=== PATIENT | female | born 1940 | race Caucasian/White ===

== ENCOUNTER 2017-12-05 08:07 | Inpatient (IN) | payer MEDICARE, OTHER, SELFPAY ==
[2017-12-05] VITALS (32 sets, daily range): BP systolic 123–178; BP diastolic 50–84; PULSE 63–80; RESP 12–25; TEMP 36.1–37.1; O2SAT 94–100; BMI 33.3; BMI 33.5
--- NOTE | 2017-12-05 09:21 | XR_ITS ---
XR chest portable HISTORY: Cough and shortness of breath, possible aspiration ITS.REASON: possibel aspiration pneumonia ORDERING PHYSICIAN: Rishabh Resendez MD PATIENT AGE: 76 years COMPARISON: None available FINDINGS: Unremarkable cardiovascular structures. There is patchy density noted in the retrocardiac region on the left the right infrahilar region consistent with bibasilar areas of infiltrate to be related to aspiration pneumonia. No effusions. No acute bony anomalies. IMPRESSION: Patchy bibasilar infiltrates which may be seen with aspiration pneumonia
[2017-12-05 11:03] LABS: POC Glucose,Bedside 261 mg/dL
[2017-12-05 11:23] LABS: Alanine Aminotransferase 133 U/L (12-78); Albumin Level 1.9 gm/dL (3.4-5.0); Albumin/Globulin Ratio 0.5 (1.1-1.8); Alkaline Phosphatase 58 U/L (46-116); Aspartate Amino Transferase 116 U/L (15-37); Bilirubin,Total 0.7 mg/dL (0.2-1.0); Blood Urea Nitrogen 51 mg/dL (7-18); Calcium 7.3 mg/dL (8.5-10.1); Carbon Dioxide 28 mmol/L (21.0-32.0); Chloride 114 mmol/L (98-107); Creatinine Clearance Estimated 62 mL/min (0-300); Estimated Glomerular Filt Rate 54 ml/min (>60); GFR (African American) 65 ML/MIN (>60); Globulin 3.8 gm/dl (1.3-3.2); Glucose 249 mg/dL (74-106); Total Protein,Serum 5.7 gm/dL (6.4-8.2)
--- NOTE | 2017-12-05 11:26 | P.CONPHA_ITS ---
[facility] Pharmacy VTE Monitoring - Patient Demographics Admission date: 12/05/17 Report Date: 12/05/17 Time: 11:25 Allergies/Adverse Reactions: Patient Allergies diltiazem [From Cardizem] Allergy (Unknown, Verified 12/05/17 09:56) Height: 1.57 m Weight: 82.696 kg - VTE Risk Clinical Trial Participant: No - Prophylaxis VTE Prophylaxis Ordered?: Yes Types of VTE Prophylaxis: TEDS Knee High
--- NOTE | 2017-12-05 11:34 | HMH.HP ---
*Admission Date: 12/05/17 Meds Home Medications Medication Instructions Recorded Confirmed Type Apixaban [Eliquis] 5 mg NG-TUBE BID 12/05/17 12/05/17 History Ascorbic Acid [Vitamin C] 250 mg NG-TUBE DAILY 12/05/17 12/05/17 History Aspirin [Aspirin 81mg EC Tab] 81 mg NG-TUBE DAILY 12/05/17 12/05/17 History Atorvastatin Calcium [Atorvastatin 80 mg NG-TUBE HS 12/05/17 12/05/17 History 80mg Tab] Citalopram Hydrobromide [Celexa 20 mg NG-TUBE DAILY 12/05/17 12/05/17 History 20mg Tablet] Diclofenac Sodium [Diclofenac Sod 2 gm TP QID 12/05/17 12/05/17 History 100gm Topical Gel] Ferrous Sulfate [Ferrous Sulfate 300 mg NG-TUBE DAILY 12/05/17 12/05/17 History 300mg/5mL Udc] Hydralazine HCl 50 mg NG-TUBE Q8H 12/05/17 12/05/17 History Labetalol HCl [Normodyne 200mg 200 mg NG-TUBE Q8H 12/05/17 12/05/17 History tablet] Methylphenidate HCl [Ritalin] 10 mg NG-TUBE DAILY 12/05/17 12/05/17 History Mirtazapine [Remeron] 15 mg NG-TUBE DAILY 12/05/17 12/05/17 History Multivitamin,Ther and Minerals 1 each NG-TUBE DAILY 12/05/17 12/05/17 History [Vitamin and Minerals] Nystatin [Nystatin Oint 100,000 10 ml G-TUBE Q8H 12/05/17 12/05/17 History Units/GM 15GM] Pantoprazole Sodium [Protonix 40mg 40 mg NG-TUBE DAILY 12/05/17 12/05/17 History tablet] Allergies Allergy/AdvReac Type Severity Reaction Status Date / Time diltiazem [From Cardizem] Allergy Unknown Verified 12/05/17 09:56 Exam Vital signs and Labs for Last 24 Hours: Temp Pulse Resp BP Pulse Ox 97.0 F L 67 25 H 141/62 100 12/05/17 08:36 12/05/17 11:01 12/05/17 08:36 12/05/17 08:36 12/05/17 11:01 Laboratory Results - last 24 hr 12/05/17 10:35: POC Glucose 261 I & O for Last 24 hours: Intake & Output 12/02/17 12/03/17 12/04/17 12/05/17 11:59 11:59 11:59 11:59 Weight 182 lb 5 oz
[2017-12-05 11:36] LABS: Sodium 152 mmol/L (136-145)
--- NOTE | 2017-12-05 11:43 | PC.NURSE ---
Patient arrived on unit via EMS. pt was on 50% venti. mask. pt lung sounds contained rhonchi scattered and diminished in bases. bowel sounds are active. g tube in place. goopy drainage noted around gtube insertion site, along with dried drainage. wound was cleansed with chlorhexadine swabe and g tube dressing applied. pt has unstageable wounds to maría elena shins. pt has 2 stage 2's on coccyx. dressings applied. pt has small stage 1 noted to maría elena hips. pt has stage 3 noted to r heel. pt has unstageable ulcer to left outer ankle. pictures are to be placed on chart. dressings were applied to all wounds. pics shown to physical therapy r/t pt wound eval. phys therapy states that dressings are appropriate at this time. will readdress at later time.
--- NOTE | 2017-12-05 12:04 | HMH.HP ---
*Admission Date: 12/05/17 <Lizbeth Boothe - 12/05/17 12:25> *Chief complaint: Respiratory distress and AMS <Lizbeth Boothe - 12/05/17 12:25> *History of present illness: Ms Gold is a 76 year old female with a difficult medical history to include multiple CVA's with left sided residual, Type 2 DM, and HTN who is a resident of of [facility]. She was sent to [facility] ER via EMS early this AM with fever, respiratory hypoxia, vomiting and AMS. She was evaluated at this ER and felt to need admission to an ICU bed . After contacting multiple facilities in [place] no ICU beds were available. Dr. Resendez was contacted and patient accepted for admission to [facility]. Patient is unable to give information and history is obtained from previous histories and [facility]: Per [facility] ER notation- Patient was noted to be bedridden with residual left sided weakness. She had been placed on oxygen at 4 LPM in the alf in order to maintain O2 sat > 92%. O2 sats then began decreasing and she was lethargic. Chest was congested. She vomited and was felt to have possibly aspirated. She did have a fever of 102.6 and was given Tylenol . Family had noted a cough. Nursing staff stated that she had not felt well for a couple of days. With evaluation in [facility] ER she was noted to have green sputum, wheezing and felt to be in respiratory distress. She also vomited and received Zofran. She was started on IV Vanc, Levaquin, and Zosyn. She received a neb TX and 1 unit of PRBC. She was initially hypotensive and was given an estimated 4000ml of NS IV. With elevated BNP fluid bolus was discontinued. Lab results at [facility] ER: HGB 6.2 with normal WBC's, elevated LFT, BUN 67 and creatinine 1.1; BS 222; negative flu; + UA; ABG's 7.52, PCO2 41, PO2 45, HCO3 34, TI 0.115. BNP 4740 CXR no definite acute CP disease 12/04/17 CTA of chest - no definite PE CT of abdomen --copious dense stool throughout the bowel and expanding rectum indicating fecal impaction; small HH As per [facility] in [place]: Patient had a right SHAKIRA stroke in Sep 2017 with residual left sided weakness. She was discharged to [facility] for rehab following admission in Sep. She returned a few days later due to neurological changes with imaging showing extension of the previous stroke. She was on Plavix at the time and transitioned to Eliquis. She was discharged back to [facility] Oct 16, 2017 and returned to [facility] Oct 25 due to hematocrit crisis. EGD revealed non-erosive gastritis without overt bleeding. She resumed Eliquis, PPI and ASA and discharged back to [facility] 10/27/17. Patient presented back to [facility] 11/03/17 with nausea, vomiting, and diarrhea with a temp of 100. CXR at this time revealed possible LLL infiltrate, neg flu PCR, and + UTI. CT of the head at this time was stable. Patient was noted to be minimally interactive. She was treated for accelerated HTN with a cardene gtt and then PO labetalol and hydralazine. Speech therapy did follow the patient for dysphasia. She did not eat well and GT was placed for tube feedings for FTT. On 11/22/17 she was transferred to the SNF in [facility] for further care. <Lizbeth Boothe 12/05/17 15:15> [facility] History Medical History: Reports:: Cerebrovascular Accident, Diabetes Mellitus Type 2, Gastroesophageal Reflux Disease(GERD), Gastrointestinal Bleed, Hypertension, Urinary Tract Infection <Lizbeth Boothe 12/05/17 14:06> Other Medical History: Reports: Anemia <Lizbeth Boothe 12/05/17 14:06> *Family Hx:: Unable to obtain <Lizbeth Boothe 12/05/17 14:06> Review of Systems - Review of Systems patient does answer questions yes and no <Lizbeth Boothe 12/05/17 14:06> - *Cardiovascular Reports shortness of breath, Denies chest pain <Lizbeth Boothe 12/05/17 14:06> - *Respiratory Reports cough, Reports shortness of breath <Lizbeth Boothe 12/05/17 14:06> - *Gastrointestina
--- NOTE | 2017-12-05 12:25 | P.HP_ITS ---
*Admission Date: 12/05/17 <Lizbeth Boothe - 12/05/17 12:25> *Chief complaint: Respiratory distress and AMS <Lizbeth Boothe - 12/05/17 12:25 > *History of present illness: Ms Gold is a 76 year old female with a difficult medical history to include multiple CVA's with left sided residual, Type 2 DM, and HTN who is a resident of of [facility]. She was sent to [facility] ER via EMS early this AM with fever, respiratory hypoxia, vomiting and AMS. She was evaluated at this ER and felt to need admission to an ICU bed . After contacting multiple facilities in [place] no ICU beds were available. Dr. Resendez was contacted and patient accepted for admission to [facility]. Patient is unable to give information and history is obtained from previous histories and [facility]: Per [facility] ER notation- Patient was noted to be bedridden with residual left sided weakness. She had been placed on oxygen at 4 LPM in the fci in order to maintain O2 sat > 92%. O2 sats then began decreasing and she was lethargic. Chest was congested. She vomited and was felt to have possibly aspirated. She did have a fever of 102.6 and was given Tylenol . Family had noted a cough. Nursing staff stated that she had not felt well for a couple of days. With evaluation in [facility] ER she was noted to have green sputum, wheezing and felt to be in respiratory distress. She also vomited and received Zofran. She was started on IV Vanc, Levaquin, and Zosyn. She received a neb TX and 1 unit of PRBC. She was initially hypotensive and was given an estimated 4000ml of NS IV. With elevated BNP fluid bolus was discontinued. Lab results at [facility] ER: HGB 6.2 with normal WBC's, elevated LFT, BUN 67 and creatinine 1.1; BS 222; negative flu; + UA; ABG's 7.52, PCO2 41, PO2 45, HCO3 34 , TI 0.115. BNP 4740 CXR no definite acute CP disease 12/04/17 CTA of chest - no definite PE CT of abdomen --copious dense stool throughout the bowel and expanding rectum indicating fecal impaction; small HH As per [facility] in [place]: Patient had a right SHAKIRA stroke in Sep 2017 with residual left sided weakness. She was discharged to [facility] for rehab following admission in Sep. She returned a few days later due to neurological changes with imaging showing extension of the previous stroke. She was on Plavix at the time and transitioned to Eliquis. She was discharged back to [facility] Oct 16, 2017 and returned to [facility] Oct 25 due to hematocrit crisis. EGD revealed non-erosive gastritis without overt bleeding. She resumed Eliquis, PPI and ASA and discharged back to [facility] 10/27/17. Patient presented back to [facility] 11/03/17 with nausea, vomiting, and diarrhea with a temp of 100. CXR at this time revealed possible LLL infiltrate , neg flu PCR, and + UTI. CT of the head at this time was stable. Patient was noted to be minimally interactive. She was treated for accelerated HTN with a cardene gtt and then PO labetalol and hydralazine. Speech therapy did follow the patient for dysphasia. She did not eat well and GT was placed for tube feedings for FTT. On 11/22/17 she was transferred to the SNF in [facility] for further care. <Lizbeth Boothe 12/05/17 15:15> [facility] History Medical History: Reports:: Cerebrovascular Accident, Diabetes Mellitus Type 2, Gastroesophageal Reflux Disease(GERD), Gastrointestinal Bleed, Hypertension, Urinary Tract Infection <Lizbeth Boothe 12/05/17 14:06> Other Medical History: Reports: Anemia <Lizbeth Boothe 12/05/17 14:06> *Family Hx:: Unable to obtain <Lizbeth Boothe 12/05/17 14:06> Review of Systems - Review of Systems patient does answer questions yes and no
--- NOTE | 2017-12-05 12:42 | PC.NURSE ---
LAB AT THE BEDSIDE NOW FOR LAB DRAW PER ORDERS.
[2017-12-05 12:54] LABS: Basophils % 0.3 % (0.1-2.0); Hematocrit 25.4 % (37.0-47.0); Lymphocytes # 1.4 K/mm3 (0.7-4.5); Lymphocytes % 19.1 K/mm3 (10-50); Mean Corpuscular HGB Conc 30.8 g/dL (31.8-35.4); Mean Platelet Volume 9.3 fl (7.4-10.4); Monocytes # 0.3 K/mm3 (0.1-1.0); Monocytes % 4.4 % (1.7-9.3); Neutrophils # 5.6 K/mm3 (1.8-7.8); Neutrophils % 76.2 % (37.0-80.0); Platelet Count 228 K/mm3 (142-424); Red Blood Count 2.79 M/mm3 (4.20-5.40); Red Cell Distribution Width 17.6 % (11.5-17.5); White Blood Count 7.4 K/mm3 (4.8-10.8)
[2017-12-05 13:05] LABS: INR 1.22 (0.9-1.1); Prothrombin Time 13.2 seconds (9.4-11.8)
[2017-12-05 13:20] LABS: Mycoplasma Pneumo IGM (Rapid) Non-Reactive (Non-Reactiv)
[2017-12-05 13:29] LABS: Hemoglobin 7.8 g/dL (12.2-16.2)
--- NOTE | 2017-12-05 13:55 | PC.NURSE ---
notified dietary that clinical ob has nutrition consult for pt./
--- NOTE | 2017-12-05 16:24 | HMH.PHACONS ---
- Pharmacy Consult Date: 12/05/17 Time: 16:24 Referring provider: DR. AVENDAÑO Reason for Consult:: VANCOMYCIN DOSING Allergies and ADEs:: Allergies Allergy/AdvReac Type Severity Reaction Status Date / Time diltiazem [From Cardizem] Allergy Unknown Verified 12/05/17 09:56 Home Medications:: Home Medications Medication Instructions Recorded Confirmed Type Apixaban [Eliquis] 5 mg NG-TUBE BID 12/05/17 12/05/17 History Ascorbic Acid [Vitamin C] 250 mg NG-TUBE DAILY 12/05/17 12/05/17 History Aspirin [Aspirin 81mg EC Tab] 81 mg NG-TUBE DAILY 12/05/17 12/05/17 History Atorvastatin Calcium [Atorvastatin 80 mg NG-TUBE HS 12/05/17 12/05/17 History 80mg Tab] Citalopram Hydrobromide [Celexa 20 mg NG-TUBE DAILY 12/05/17 12/05/17 History 20mg Tablet] Diclofenac Sodium [Diclofenac Sod 2 gm TP QID 12/05/17 12/05/17 History 100gm Topical Gel] Ferrous Sulfate [Ferrous Sulfate 300 mg NG-TUBE DAILY 12/05/17 12/05/17 History 300mg/5mL Udc] Hydralazine HCl 50 mg NG-TUBE Q8H 12/05/17 12/05/17 History Labetalol HCl [Normodyne 200mg 200 mg NG-TUBE Q8H 12/05/17 12/05/17 History tablet] Methylphenidate HCl [Ritalin] 10 mg NG-TUBE DAILY 12/05/17 12/05/17 History Mirtazapine [Remeron] 15 mg NG-TUBE DAILY 12/05/17 12/05/17 History Multivitamin,Ther and Minerals 1 each NG-TUBE DAILY 12/05/17 12/05/17 History [Vitamin and Minerals] Nystatin [Nystatin Oint 100,000 10 ml G-TUBE Q8H 12/05/17 12/05/17 History Units/GM 15GM] Pantoprazole Sodium [Protonix 40mg 40 mg NG-TUBE DAILY 12/05/17 12/05/17 History tablet] Height: 1.57 m Weight: 82.696 kg Laboratory Results:: Laboratory Results - last 24 hr 12/05/17 10:09: Sodium 152 H*, Potassium 4.0, Chloride 114 H, Carbon Dioxide 28, Anion Gap 14.0, BUN 51 H, Creatinine 1.00, Estimated Creat Clear 62, Estimated GFR 54 L, Est GFR ( Amer) 65, Glucose 249 H, Calcium 7.3 L, Total Bilirubin 0.7, AST 116 H, ALT 133 H, Alkaline Phosphatase 58, Total Protein 5.7 L, Albumin 1.9 L, Globulin 3.8 H, Albumin/Globulin Ratio 0.5 L 12/05/17 10:09: Mycoplasma pneumon IgM Non-reactive 12/05/17 10:35: POC Glucose 261 12/05/17 12:37: WBC 7.4, RBC 2.79 L, Hgb 7.8 L*, Hct 25.4 L, MCV 91.0, MCH 28.0, MCHC 30.8 L, RDW 17.6 H, Plt Count 228, MPV 9.3, Neut % (Auto) 76.2, Lymph % (Auto) 19.1, [place] % (Auto) 4.4, Eos % (Auto) 0.0 L, Baso % (Auto) 0.3, Neut # (Auto) 5.6, Lymph # (Auto) 1.4, [place] # (Auto) 0.3, Eos # (Auto) 0.0, Baso # (Auto) 0.0 12/05/17 12:37: PT 13.2 H, INR 1.22 H, APTT 29.0 12/05/17 14:00: Blood Type A Positive 12/05/17 14:40: Blood Type Confirm A Positive Medical History: Reports:: Cerebrovascular Accident, Diabetes Mellitus Type 2, Gastroesophageal Reflux Disease(GERD), Gastrointestinal Bleed, Hypertension, Urinary Tract Infection Denies:: Cancer, Diabetes Mellitus Type 1, MRSA Assessment and Plan (1) Anemia Current visit: Yes Status: Acute Category: Medical Code(s): D64.9 - Anemia, unspecified (2) CVA (cerebrovascular accident) Current visit: Yes Status: Chronic Category: Medical Code(s): I63.9 - Cerebral infarction, unspecified (3) HTN (hypertension) Current visit: Yes Status: Chronic Category: Medical Code(s): I10 - Essential (primary) hypertension (4) Diabetes mellitus Current visit: Yes Status: Chronic Category: Medical Code(s): E11.9 - Type 2 diabetes mellitus without complications (5) Pneumonia Current visit: Yes Status: Acute Qualifiers: Pneumonia type: aspiration pneumonia Category: Medical Code(s): J18.9 - Pneumonia, unspecified organism (6) UTI (urinary tract infection) Current visit: Yes Status: Acute Category: Medical Code(s): N39.0 - Urinary tract infection, site not specified - Assessment and plan all Dx Assessment and Plan for all problems:: BASED ON PATIENT'S FACTORS, RECOMMEND STARTING WITH VANCOMYCIN 1500 MG Q24H AT THIS TIME. PHARMACY WILL FOLLOW UP DAILY AND ADJUST APPROPRI
--- NOTE | 2017-12-05 16:39 | DIET.NUTRFU ---
Nutrition consult for tube feeds completed. Recommend Glucerna 1.0 goal rate 63 ml/hr with additional beneprotein powder one scoop tid added to 30 ml free water. This should provide approx 1550 calories, 88 gm protein and 22 gm fiber. Recommend restart mvi supplement and ascorbic acid. Recommend d/c mirtazpine if being used as an appetite stimulant. will monitor for tolerance to tube feeds.
[2017-12-05 17:16] LABS: POC Glucose,Bedside 202 mg/dL
--- NOTE | 2017-12-05 17:43 | HMH.GSCON ---
*Admission Date: 12/05/17 *Chief complaint: Anemia *History of present illness: Patient is a 76-year-old white female [facility] patient resident of [facility]. Recently she had sustained several cerebrovascular accidents. She had been hospitalized at [facility] for prolonged and repeated admissions recently. In fact, she has had several prolonged stays for the past several months between [facility] and [facility] rehab [facility]. She had a percutaneous endoscopic gastrostomy tube placed approximately 2 weeks ago. Patient was ultimately apparently transferred to correction facility in [facility] on 11/22/17. She was transferred to [facility] emergency department yesterday and evaluation revealed fevers and hypoxia and findings suggestive of respiratory distress . She was found to have anemia and hypernatremia. It was felt that she required an ICU bed. Reportedly there were no ICU beds in [facility] or within [facility]. Due to ICU bed availability at this institution she was transferred and admitted. Due to the anemia surgery was consulted. Review of Systems - Review of Systems Review of systems:: unable to obtain - *Neurologic Reports abnormal speech [facility] History I have reviewed the patient's past medical history: Yes Medical History: Reports:: Cerebrovascular Accident, Diabetes Mellitus Type 2, Gastroesophageal Reflux Disease(GERD), Gastrointestinal Bleed, Hypertension, Urinary Tract Infection Denies:: Cancer, Diabetes Mellitus Type 1, MRSA Other Medical History: Reports: Anemia Amputation: No - *Social History Smoking Status: Unknown if ever smoked Alcohol Intake: never Occupational Status: retired, disabled Housing: usp - Psychiatric History Expresses thoughts of harming self/others: None Suicide Plan Description: No Plan *Family Hx:: Unable to obtain [facility] Home Medications Medication Instructions Recorded Confirmed Type Apixaban [Eliquis] 5 mg NG-TUBE BID 12/05/17 12/05/17 History Ascorbic Acid [Vitamin C] 250 mg NG-TUBE DAILY 12/05/17 12/05/17 History Aspirin [Aspirin 81mg EC Tab] 81 mg NG-TUBE DAILY 12/05/17 12/05/17 History Atorvastatin Calcium [Atorvastatin 80 mg NG-TUBE HS 12/05/17 12/05/17 History 80mg Tab] Citalopram Hydrobromide [Celexa 20 mg NG-TUBE DAILY 12/05/17 12/05/17 History 20mg Tablet] Diclofenac Sodium [Diclofenac Sod 2 gm TP QID 12/05/17 12/05/17 History 100gm Topical Gel] Ferrous Sulfate [Ferrous Sulfate 300 mg NG-TUBE DAILY 12/05/17 12/05/17 History 300mg/5mL Udc] Hydralazine HCl 50 mg NG-TUBE Q8H 12/05/17 12/05/17 History Labetalol HCl [Normodyne 200mg 200 mg NG-TUBE Q8H 12/05/17 12/05/17 History tablet] Methylphenidate HCl [Ritalin] 10 mg NG-TUBE DAILY 12/05/17 12/05/17 History Mirtazapine [Remeron] 15 mg NG-TUBE DAILY 12/05/17 12/05/17 History Multivitamin,Ther and Minerals 1 each NG-TUBE DAILY 12/05/17 12/05/17 History [Vitamin and Minerals] Nystatin [Nystatin Oint 100,000 10 ml G-TUBE Q8H 12/05/17 12/05/17 History Units/GM 15GM] Pantoprazole Sodium [Protonix 40mg 40 mg NG-TUBE DAILY 12/05/17 12/05/17 History tablet] Allergies Allergy/AdvReac Type Severity Reaction Status Date / Time diltiazem [From Cardizem] Allergy Unknown Verified 12/05/17 09:56 Exam Vital signs and Labs for Last 24 Hours: Temp Pulse Resp BP Pulse Ox 98.7 F 66 16 162/69 100 12/05/17 17:40 12/05/17 17:40 12/05/17 16:00 12/05/17 17:40 12/05/17 17:40 Laboratory Results - last 24 hr 12/05/17 10:09: Sodium 152 H*, Potassium 4.0, Chloride 114 H, Carbon Dioxide 28, Anion Gap 14.0, BUN 51 H, Creatinine 1.00, Estimated Creat Clear 62, Estimated GFR 54 L, Est GFR ( Amer) 65, Glucose 249 H, Calcium 7.3 L, Total Bilirubin 0.7, AST 116 H, ALT 133 H, Alkaline Phosphatase 58, Total Protein 5.7 L, Albumin 1.9 L, Globulin 3.8 H, Albumin/G
--- NOTE | 2017-12-05 17:51 | P.CONS_ITS ---
*Admission Date: 12/05/17 *Chief complaint: Anemia *History of present illness: Patient is a 76-year-old white female correction patient resident of [facility]. Recently she had sustained several cerebrovascular accidents. She had been hospitalized at [facility] for prolonged and repeated admissions recently. In fact, she has had several prolonged stays for the past several months between [facility] and [facility] rehab [facility]. She had a percutaneous endoscopic gastrostomy tube placed approximately 2 weeks ago. Patient was ultimately apparently transferred to [facility] facility in [facility] on . She was transferred to [facility] emergency department yesterday and evaluation revealed fevers and hypoxia and findings suggestive of respiratory distress . She was found to have anemia and hypernatremia. It was felt that she required an ICU bed. Reportedly there were no ICU beds in [facility] or within [facility]. Due to ICU bed availability at this institution she was transferred and admitted. Due to the anemia surgery was consulted. Review of Systems - Review of Systems Review of systems:: unable to obtain - *Neurologic Reports abnormal speech [facility] History I have reviewed the patient's past medical history: Yes Medical History: Reports:: Cerebrovascular Accident, Diabetes Mellitus Type 2, Gastroesophageal Reflux Disease(GERD), Gastrointestinal Bleed, Hypertension, Urinary Tract Infection Denies:: Cancer, Diabetes Mellitus Type 1, MRSA Other Medical History: Reports: Anemia Amputation: No - *Social History Smoking Status: Unknown if ever smoked Alcohol Intake: never Occupational Status: retired, disabled Housing: correction - Psychiatric History Expresses thoughts of harming self/others: None Suicide Plan Description: No Plan *Family Hx:: Unable to obtain [facility] Home Medications Medication Instructions Recorded Confirmed Type Apixaban [Eliquis] 5 mg NG-TUBE BID 12/05/17 12/05/17 History Ascorbic Acid [Vitamin C] 250 mg NG-TUBE DAILY 12/05/17 12/05/17 History Aspirin [Aspirin 81mg EC Tab] 81 mg NG-TUBE DAILY 12/05/17 12/05/17 History Atorvastatin Calcium [Atorvastatin 80 mg NG-TUBE HS 12/05/17 12/05/17 History 80mg Tab] Citalopram Hydrobromide [Celexa 20 mg NG-TUBE DAILY 12/05/17 12/05/17 History 20mg Tablet] Diclofenac Sodium [Diclofenac Sod 2 gm TP QID 12/05/17 12/05/17 History 100gm Topical Gel] Ferrous Sulfate [Ferrous Sulfate 300 mg NG-TUBE DAILY 12/05/17 12/05/17 History 300mg/5mL Udc] Hydralazine HCl 50 mg NG-TUBE Q8H 12/05/17 12/05/17 History Labetalol HCl [Normodyne 200mg 200 mg NG-TUBE Q8H 12/05/17 12/05/17 History tablet] Methylphenidate HCl [Ritalin] 10 mg NG-TUBE DAILY 12/05/17 12/05/17 History Mirtazapine [Remeron] 15 mg NG-TUBE DAILY 12/05/17 12/05/17 History Multivitamin,Ther and Minerals 1 each NG-TUBE DAILY 12/05/17 12/05/17 History [Vitamin and Minerals] Nystatin [Nystatin Oint 100,000 10 ml G-TUBE Q8H 12/05/17 12/05/17 History Units/GM 15GM] Pantoprazole Sodium [Protonix 40mg 40 mg NG-TUBE DAILY 12/05/17 12/05/17 History tablet] Allergies Allergy/AdvReac Type Severity Reaction Status Date / Time diltiazem [From [facility]] Allergy Unknown Verified 12/05/17 09:56 Exam Vital signs and Labs for Last 24 Hours:
--- NOTE | 2017-12-05 18:03 | PC.NURSE ---
Addendum entered by Carey Jones RN 12/06/17 07:40: late entry: during bedside exam with dr nichols, removed suture that was reportedly in place since insertion of g tube 2 weeks prior (information per family) Original Note: At bedside with dr Nichols during Consult. Pt g tube was again checked for patency. no javon blood or coffee ground emesis noted with aspiration of stomach contents. previously in the shift, patency was verified by elver jones rn at 1120. no aspirants noted, placement in abd verified by insertion of air through g tube. dr nichols states ok to use g tube, new dressing was applied after inspection by md. will continue to monitor.
--- NOTE | 2017-12-05 18:10 | PC.NURSE ---
PATIENT NOW GETTING HER FIRST UNIT OF BLOOD, VSS, SHE IS TOLERATING THE TRANSFUSION WELL, WE ARE 15 MINUTES IN, PATIENT IS SLEEPING AT THIS TIME.
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
[2017-12-05 19:55] LABS: Microscopic,Cath URINE MICROSCOPIC (MICROSCOPIC)
--- NOTE | 2017-12-05 20:12 | PC.NURSE ---
report given to glen posadas rn at 192
[2017-12-05 21:04] LABS: Bacteria,Urine/Cath 1+ /lpf; RBC,Urine/Cath 20-50 # /hpf (0-3); Squamous Epithelial Ur./Cath Occasional #/hpf (0-5); Uric Acid Crystals,Ur/Cath 2+ /lpf; WBC,Urine/Cath Occasional #/hpf (0-3)
[2017-12-06] VITALS (16 sets, daily range): BP systolic 143–190; BP diastolic 63–108; PULSE 60–70; RESP 14–28; TEMP 36.9–37.7; O2SAT 94–99
[2017-12-06 00:27] LABS: POC Glucose,Bedside 170 mg/dL
--- NOTE | 2017-12-06 00:29 | PC.NURSE ---
PT HAS HEEL PROTECTORS IN PLACE & HEELS FLOATING
[2017-12-06 01:09] LABS: Hematocrit 33.5 % (37.0-47.0)
[2017-12-06 01:17] LABS: Hemoglobin 10.7 g/dL (12.2-16.2)
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
[2017-12-06 05:26] LABS: POC Glucose,Bedside 209 mg/dL
[2017-12-06 06:17] LABS: Basophils % 0.5 % (0.1-2.0); Eosinophils % 0.1 % (0.1-12.0); Hematocrit 33.9 % (37.0-47.0); Hemoglobin 10.6 g/dL (12.2-16.2); Lymphocytes # 1.2 K/mm3 (0.7-4.5); Lymphocytes % 16.2 K/mm3 (10-50); Mean Corpuscular HGB Conc 31.3 g/dL (31.8-35.4); Mean Corpuscular Hemoglobin 27.4 pg (27.0-31.2); Mean Corpuscular Volume 87.5 fl (81-99); Mean Platelet Volume 9.2 fl (7.4-10.4); Monocytes # 0.3 K/mm3 (0.1-1.0); Monocytes % 4.4 % (1.7-9.3); Neutrophils % 78.8 % (37.0-80.0); Platelet Count 198 K/mm3 (142-424); Red Blood Count 3.87 M/mm3 (4.20-5.40); Red Cell Distribution Width 17.4 % (11.5-17.5); White Blood Count 7.7 K/mm3 (4.8-10.8)
[2017-12-06 06:37] LABS: Alanine Aminotransferase 103 U/L (12-78); Albumin Level 1.9 gm/dL (3.4-5.0); Albumin/Globulin Ratio 0.5 (1.1-1.8); Alkaline Phosphatase 69 U/L (46-116); Anion Gap 12.4 mEq/L (5-15); Aspartate Amino Transferase 79 U/L (15-37); Bilirubin,Total 0.8 mg/dL (0.2-1.0); Blood Urea Nitrogen 36 mg/dL (7-18); Calcium 7.3 mg/dL (8.5-10.1); Carbon Dioxide 30 mmol/L (21.0-32.0); Chloride 112 mmol/L (98-107); Creatinine Clearance Estimated 62 mL/min (0-300); Creatinine,Serum 0.93 mg/dL (0.55-1.02); Estimated Glomerular Filt Rate 59 ml/min (>60); GFR (African American) 71 ML/MIN (>60); Globulin 3.6 gm/dl (1.3-3.2); Glucose 218 mg/dL (74-106); Potassium 3.4 mmoL/L (3.5-5.1); Total Protein,Serum 5.5 gm/dL (6.4-8.2)
[2017-12-06 06:42] LABS: Sodium 151 mmol/L (136-145)
[2017-12-06 07:12] LABS: Appearance,Urine/Cath CLEAR (Clear); Bilirubin,Cath Negative (Negative); Blood, Urine/Cath 1+ (Negative); Color,Urine/Cath YELLOW (Yellow); Glucose,Urine/Cath (UA) Negative (Negative); Ketones,Urine/Cath Negative (Negative); Leukocyte Esterase,Cath Negative (Negative); Nitrate,Cath Negative (Negative); Protein,Urine/Cath 1+ (Negative)
--- NOTE | 2017-12-06 07:54 | PC.NURSE ---
spoke with dr bai. feels pt is more stable at this time and is able to be transferred out of stepdown. will continue to monitor with a jonatan de la rosa
--- NOTE | 2017-12-06 08:50 | P.PN_ITS ---
Subjective Narrative: No major issues overnight. Exam Vital signs and Labs for Last 24 Hours: Temp Pulse Resp BP Pulse Ox 99.9 F H 67 16 157/99 97 12/06/17 07:39 12/06/17 07:39 12/06/17 07:39 12/06/17 07:39 12/06/17 07:39 Laboratory Results - last 24 hr 12/05/17 10:09: Sodium 152 H*, Potassium 4.0, Chloride 114 H, Carbon Dioxide 28 , Anion Gap 14.0, BUN 51 H, Creatinine 1.00, Estimated Creat Clear 62, Estimated GFR 54 L, Est GFR ( Amer) 65, Glucose 249 H, Calcium 7.3 L, Total Bilirubin 0.7, AST 116 H, ALT 133 H, Alkaline Phosphatase 58, Total Protein 5.7 L, Albumin 1.9 L, Globulin 3.8 H, Albumin/Globulin Ratio 0.5 L 12/05/17 10:09: Mycoplasma pneumon IgM Non-reactive 12/05/17 10:35: POC Glucose 261 12/05/17 12:37: WBC 7.4, RBC 2.79 L, Hgb 7.8 L*, Hct 25.4 L, MCV 91.0, MCH 28.0 , MCHC 30.8 L, RDW 17.6 H, Plt Count 228, MPV 9.3, Neut % (Auto) 76.2, Lymph % ( Auto) 19.1, [place] % (Auto) 4.4, Eos % (Auto) 0.0 L, Baso % (Auto) 0.3, Neut # ( Auto) 5.6, Lymph # (Auto) 1.4, [place] # (Auto) 0.3, Eos # (Auto) 0.0, Baso # (Auto ) 0.0 12/05/17 12:37: PT 13.2 H, INR 1.22 H, APTT 29.0 12/05/17 14:00: Blood Type A Positive, Antibody Screen Negative, Crossmatch (AHG ) See Detail 12/05/17 14:40: Blood Type Confirm A Positive 12/05/17 16:38: POC Glucose 202 12/05/17 19:45: Urine Color Yellow, Urine Appearance Clear, Urine pH 6.0, Ur Specific [place] 1.020, Urine Protein 1+, Urine Glucose (UA) Negative, Urine Ketones Negative, Urine Blood 1+, Urine Nitrate Negative, Urine Bilirubin Negative, Urine Urobilinogen 1.0, Ur Leukocyte Esterase Negative, Urine RBC 20- 50, Urine WBC Occasional, Ur Squamous Epith Cells Occasional, Uric Acid Crystals 2+, Urine Bacteria 1+ 12/05/17 19:53: POC Glucose 170 12/06/17 00:50: Hgb 10.7 L D, Hct 33.5 L 12/06/17 04:50: POC Glucose 209 12/06/17 05:50: WBC 7.7, RBC 3.87 L D, Hgb 10.6 L, Hct 33.9 L, MCV 87.5, MCH 27.4, MCHC 31.3 L, RDW 17.4, Plt Count 198, MPV 9.2, Neut % (Auto) 78.8, Lymph % (Auto) 16.2, [place] % (Auto) 4.4, Eos % (Auto) 0.1, Baso % (Auto) 0.5, Neut # ( Auto) 6.0, Lymph # (Auto) 1.2, [place] # (Auto) 0.3, Eos # (Auto) 0.0, Baso # (Auto ) 0.0 12/06/17 05:50: Sodium 151 H*, Potassium 3.4 L, Chloride 112 H, Carbon Dioxide 30, Anion Gap 12.4, BUN 36 H D, Creatinine 0.93, Estimated Creat Clear 62, Estimated GFR 59, Est GFR ( Amer) 71, Glucose 218 H, Calcium 7.3 L, Total Bilirubin 0.8, AST 79 H D, ALT 103 H, Alkaline Phosphatase 69, Total Protein 5.5 L, Albumin 1.9 L, Globulin 3.6 H, Albumin/Globulin Ratio 0.5 L I & O for Last 24 hours: Intake & Output 12/03/17 12/04/17 12/05/17 12/06/17 11:59 11:59 11:59 11:59 Intake Total 303 / 303 Output Total 2199 / 2200 Balance -1897 / -1897 Weight 182 lb 5 oz 180 lb 7 oz - *Routine Abdominal Exam Comments: Soft Progress Note: A&P (1) Anemia Status: Acute Assessment and plan: Treat empirically with PPIs. Would not perform EGD due to recent PEG, no evidence of active bleeding, appreciable hypernatremia. Current Visit: Yes (2) CVA (cerebrovascular accident) Status: Chronic Current Visit: Yes (3) HTN (hypertension) Status: Chronic Current Visit: Yes (4) Diabetes mellitus Status: Chronic Current Visit: Yes (5) Pneumonia Status: Acute Current Visit: Yes (6) UTI (urinary tract infection) Status: Acute Current Visit: Yes
--- NOTE | 2017-12-06 09:07 | HMH.ACPN2 ---
<Sara Worley - Last Filed: 12/06/17 09:07> Internal Medicine - PN: Subj *Date: 12/06/17 *Time: 09:07 Interval history: Pt has improved today. She is more alert and can respond to questions. She denies any pain. She states she slept off and on last night. Exam Vital signs and Labs for Last 24 Hours: Temp Pulse Resp BP Pulse Ox 99.9 F H 67 16 157/99 97 12/06/17 07:39 12/06/17 07:39 12/06/17 07:39 12/06/17 07:39 12/06/17 07:39 Laboratory Results - last 24 hr 12/05/17 10:09: Sodium 152 H*, Potassium 4.0, Chloride 114 H, Carbon Dioxide 28, Anion Gap 14.0, BUN 51 H, Creatinine 1.00, Estimated Creat Clear 62, Estimated GFR 54 L, Est GFR ( Amer) 65, Glucose 249 H, Calcium 7.3 L, Total Bilirubin 0.7, AST 116 H, ALT 133 H, Alkaline Phosphatase 58, Total Protein 5.7 L, Albumin 1.9 L, Globulin 3.8 H, Albumin/Globulin Ratio 0.5 L 12/05/17 10:09: Mycoplasma pneumon IgM Non-reactive 12/05/17 10:35: POC Glucose 261 12/05/17 12:37: WBC 7.4, RBC 2.79 L, Hgb 7.8 L*, Hct 25.4 L, MCV 91.0, MCH 28.0, MCHC 30.8 L, RDW 17.6 H, Plt Count 228, MPV 9.3, Neut % (Auto) 76.2, Lymph % (Auto) 19.1, [place] % (Auto) 4.4, Eos % (Auto) 0.0 L, Baso % (Auto) 0.3, Neut # (Auto) 5.6, Lymph # (Auto) 1.4, [place] # (Auto) 0.3, Eos # (Auto) 0.0, Baso # (Auto) 0.0 12/05/17 12:37: PT 13.2 H, INR 1.22 H, APTT 29.0 12/05/17 14:00: Blood Type A Positive, Antibody Screen Negative, Crossmatch (AHG) See Detail 12/05/17 14:40: Blood Type Confirm A Positive 12/05/17 16:38: POC Glucose 202 12/05/17 19:45: Urine Color Yellow, Urine Appearance Clear, Urine pH 6.0, Ur Specific [place] 1.020, Urine Protein 1+, Urine Glucose (UA) Negative, Urine Ketones Negative, Urine Blood 1+, Urine Nitrate Negative, Urine Bilirubin Negative, Urine Urobilinogen 1.0, Ur Leukocyte Esterase Negative, Urine RBC 20-50, Urine WBC Occasional, Ur Squamous Epith Cells Occasional, Uric Acid Crystals 2+, Urine Bacteria 1+ 12/05/17 19:53: POC Glucose 170 12/06/17 00:50: Hgb 10.7 L D, Hct 33.5 L 12/06/17 04:50: POC Glucose 209 12/06/17 05:50: WBC 7.7, RBC 3.87 L D, Hgb 10.6 L, Hct 33.9 L, MCV 87.5, MCH 27.4, MCHC 31.3 L, RDW 17.4, Plt Count 198, MPV 9.2, Neut % (Auto) 78.8, Lymph % (Auto) 16.2, [place] % (Auto) 4.4, Eos % (Auto) 0.1, Baso % (Auto) 0.5, Neut # (Auto) 6.0, Lymph # (Auto) 1.2, [place] # (Auto) 0.3, Eos # (Auto) 0.0, Baso # (Auto) 0.0 12/06/17 05:50: Sodium 151 H*, Potassium 3.4 L, Chloride 112 H, Carbon Dioxide 30, Anion Gap 12.4, BUN 36 H D, Creatinine 0.93, Estimated Creat Clear 62, Estimated GFR 59, Est GFR ( Amer) 71, Glucose 218 H, Calcium 7.3 L, Total Bilirubin 0.8, AST 79 H D, ALT 103 H, Alkaline Phosphatase 69, Total Protein 5.5 L, Albumin 1.9 L, Globulin 3.6 H, Albumin/Globulin Ratio 0.5 L I & O for Last 24 hours: Intake & Output 12/03/17 12/04/17 12/05/17 12/06/17 11:59 11:59 11:59 11:59 Intake Total 303 / 303 Output Total 2200 / 2200 Balance -1897 / -1897 Weight 182 lb 5 oz 180 lb 7 oz - Constitutional no acute distress (Able to respond today) - *Routine Respiratory Exam Present: crackles - *Routine Cardiovascular Exam Present: RRR - *Routine Abdominal Exam Present: soft, normoactive bowel sounds. Absent: tenderness - *Routine Extremities Exam Absent: edema Assessment and Plan (1) Pneumonia Current visit: Yes Status: Acute Qualifiers: Pneumonia type: aspiration pneumonia Category: Medical Code(s): J18.9 - Pneumonia, unspecified organism (2) UTI (urinary tract infection) Current visit: Yes Status: Acute Category: Medical Code(s): N39.0 - Urinary tract infection, site not specified (3) Hypotension Current visit: Yes Status: Acute Category: Medical Code(s): I95.9 - Hypotension, unspecified (4) Anemia Current visit: Yes Status: Acute Category: Medical Code(s): D64.9 - Anemia, unspecified (5) CVA (cerebrovascular accident) Current visit: Yes Status: Chronic Category: Medical Code(s): I6
--- NOTE | 2017-12-06 09:10 | P.PN_ITS ---
<Sara Worley - Last Filed: 12/06/17 09:07> Internal Medicine - PN: Subj *Date: 12/06/17 *Time: 09:07 Interval history: Pt has improved today. She is more alert and can respond to questions. She denies any pain. She states she slept off and on last night. Exam Vital signs and Labs for Last 24 Hours: Temp Pulse Resp BP Pulse Ox 99.9 F H 67 16 157/99 97 12/06/17 07:39 12/06/17 07:39 12/06/17 07:39 12/06/17 07:39 12/06/17 07:39 Laboratory Results - last 24 hr 12/05/17 10:09: Sodium 152 H*, Potassium 4.0, Chloride 114 H, Carbon Dioxide 28 , Anion Gap 14.0, BUN 51 H, Creatinine 1.00, Estimated Creat Clear 62, Estimated GFR 54 L, Est GFR ( Amer) 65, Glucose 249 H, Calcium 7.3 L, Total Bilirubin 0.7, AST 116 H, ALT 133 H, Alkaline Phosphatase 58, Total Protein 5.7 L, Albumin 1.9 L, Globulin 3.8 H, Albumin/Globulin Ratio 0.5 L 12/05/17 10:09: Mycoplasma pneumon IgM Non-reactive 12/05/17 10:35: POC Glucose 261 12/05/17 12:37: WBC 7.4, RBC 2.79 L, Hgb 7.8 L*, Hct 25.4 L, MCV 91.0, MCH 28.0 , MCHC 30.8 L, RDW 17.6 H, Plt Count 228, MPV 9.3, Neut % (Auto) 76.2, Lymph % ( Auto) 19.1, [place] % (Auto) 4.4, Eos % (Auto) 0.0 L, Baso % (Auto) 0.3, Neut # ( Auto) 5.6, Lymph # (Auto) 1.4, [place] # (Auto) 0.3, Eos # (Auto) 0.0, Baso # (Auto ) 0.0 12/05/17 12:37: PT 13.2 H, INR 1.22 H, APTT 29.0 12/05/17 14:00: Blood Type A Positive, Antibody Screen Negative, Crossmatch (AHG ) See Detail 12/05/17 14:40: Blood Type Confirm A Positive 12/05/17 16:38: POC Glucose 202 12/05/17 19:45: Urine Color Yellow, Urine Appearance Clear, Urine pH 6.0, Ur Specific [place] 1.020, Urine Protein 1+, Urine Glucose (UA) Negative, Urine Ketones Negative, Urine Blood 1+, Urine Nitrate Negative, Urine Bilirubin Negative, Urine Urobilinogen 1.0, Ur Leukocyte Esterase Negative, Urine RBC 20- 50, Urine WBC Occasional, Ur Squamous Epith Cells Occasional, Uric Acid Crystals 2+, Urine Bacteria 1+ 12/05/17 19:53: POC Glucose 170 12/06/17 00:50: Hgb 10.7 L D, Hct 33.5 L 12/06/17 04:50: POC Glucose 209 12/06/17 05:50: WBC 7.7, RBC 3.87 L D, Hgb 10.6 L, Hct 33.9 L, MCV 87.5, MCH 27.4, MCHC 31.3 L, RDW 17.4, Plt Count 198, MPV 9.2, Neut % (Auto) 78.8, Lymph % (Auto) 16.2, [place] % (Auto) 4.4, Eos % (Auto) 0.1, Baso % (Auto) 0.5, Neut # ( Auto) 6.0, Lymph # (Auto) 1.2, [place] # (Auto) 0.3, Eos # (Auto) 0.0, Baso # (Auto ) 0.0 12/06/17 05:50: Sodium 151 H*, Potassium 3.4 L, Chloride 112 H, Carbon Dioxide 30, Anion Gap 12.4, BUN 36 H D, Creatinine 0.93, Estimated Creat Clear 62, Estimated GFR 59, Est GFR ( Amer) 71, Glucose 218 H, Calcium 7.3 L, Total Bilirubin 0.8, AST 79 H D, ALT 103 H, Alkaline Phosphatase 69, Total Protein 5.5 L, Albumin 1.9 L, Globulin 3.6 H, Albumin/Globulin Ratio 0.5 L I & O for Last 24 hours: Intake & Output 12/03/17 12/04/17 12/05/17 12/06/17 11:59 11:59 11:59 11:59 Intake Total 303 / 303 Output Total 2200 / 2200 Balance -1897 / -1897 Weight 182 lb 5 oz 180 lb 7 oz - Constitutional no acute distress (Able to respond today) - *Routine Respiratory Exam Present: crackles - *Routine Cardiovascular Exam Present: RRR - *Routine Abdominal Exam Present: soft, normoactive bowel sounds. Absent: tenderness - *Routine Extremities Exam Absent: edema Assessment and Plan (1) Pneumonia Current visit: Yes Status: Acute Qualifiers: Pneumonia type: aspiration pneumonia Category: Medical Code(s): J18.9 - Pneumonia, unspecified organism (2) UTI (urinary tract infection) Cu
[2017-12-06 09:53] LABS: POC Glucose,Bedside 276 mg/dL
--- NOTE | 2017-12-06 11:04 | HMH.PTWOUND ---
Rehab Inpt Wound Evaluation Rehab IP Wound Evaluation Start: 12/05/17 09:50 Freq: once Status: Active Protocol: Document 12/06/17 10:15 ONEL (Rec: 12/06/17 11:04 PHOMARY JANE [id number]) Rehab PT Wound Assessment Subjective Subjective Pt c/o tenderness to palpation all over . Wound Sacrum Wound Type Pressure Ulcer Is This a Chronic Wound No Wound Staging Stage II Query Text:Stage I - Unbroken, red skin, no blanching. Stage II - Skin broken, superficial skin loss involving epidermis alone or also dermis. Partial loss of skin layers. Stage III - Pressure area involves epidermis, dermis and subcutaneous tissue, full thickness skin loss. Stage IV - Pressure area involves epidermis, subcutaneous tissue, bone and other supportive tissue. Full thickness skin loss with extensive destruction of underlying tissue and structures. Superficial wound not involving tendon, w/o infection/ischemia capsule or bone Wound Length (cm) 2.0 Wound Width (cm) 2.0 Wound Bed Appearance [place] Yellow Percentage Granulated (%) 50 Percentage of Slough (%) 50 Wound Margins Description Macerated Surrounding Tissue Appearance Bright Red Wound Drainage Description Serosanguineous Drainage Amount Small Drainage Odor No Odor Dressing Status Changed Wound Topical Solution/Irrigant Saline Irrigant Primary Dressing Hydrocolloid Wound Debridement Method Mechanical Dressing Change Patient Tolerance Tolerated Well Plan/Recommendation Comment Continue dressing changes as necessary, PT will follow for sharp debridement if needed. Eval Complexity Eval Charge Codes 46307 - High Complexity G-codes PT Current Status Self Care PT Current Status Modifier CM-At least 80% but less than 100% impaired, limited or restricted PT Goal Status Self Care PT Goal Status Modifer CM-At least 80% but less than 100% impaired, limited or restricted PHYSICIAN CERTIFICATION: I certify the specified therapy services for Alla Leslie are required, authorized, and reviewed every 30 days.
[2017-12-06 17:04] LABS: POC Glucose,Bedside 275 mg/dL
--- NOTE | 2017-12-06 17:25 | PC.NURSE ---
PT SWITCHED FROM VENTI MASK TO 2L NC. PT TOLERATING WELL. TUBES AND FEEDING BOTTLE CHANGED. RESIDUAL CHECKED AT 10ML AND WAS THE COLOR OF THE TUBE FEEDING THAT HAD BEEN INSTILLED. SITE IS STILL RED AND HAS DRAINING BUT IS NOTICEABLE IMPROVED FROM PREVIOUS DESCRIPTION AND PHOTOS ON CHART. HAND OFF WAS GIVING TO KAMLESH HULL RN.
--- NOTE | 2017-12-06 17:30 | PC.NURSE ---
report received from Arielle Jack RN
--- NOTE | 2017-12-06 19:10 | PC.NURSE ---
report given to sakshi ang rn
[2017-12-07] VITALS (11 sets, daily range): BP systolic 162–189; BP diastolic 66–77; PULSE 60–70; RESP 16–28; TEMP 36.5–37.1; O2SAT 92–98
[2017-12-07 00:42] LABS: POC Glucose,Bedside 230 mg/dL
--- NOTE | 2017-12-07 00:51 | PC.NURSE ---
Upon 2100 round pt residual check via g tube, 90 ml of gastric content mixed with tube feed noted. Tube feeds stopped at that time. Approximately 2200 rechecked residual, 45 mL of content noted, tubes feeds continued at rate of 25. 0030 residual checked once again, no residual noted, tube feeds rate increased to 45. Will continue to monitor.
--- NOTE | 2017-12-07 04:41 | PC.NURSE ---
Pt verbally repsonded when asked if she was in pain and stated, No honey Pt is alert to name and when asked where she is at she states, In some hospital but I dont know the name. Faint crackles noted to left anterior base during lung auscultation. BS active in all 4 qauds. G tube noted, verified place with auscultation and aspiration of gastric contents. After continuing tube feeds and increasing rate to 45 pt has 10 mL of residual, tube feeds rate increased to 55, 2 hours later residual was 10 mL, increased rate to 60. Flaccid to left side (pt baseline, previous CVA). Left pedal pulse 1+ with palpation, R pedal pulse auscultation with doppler, no able to palpate, R and L tibial pulse auscultated with doppler. Edema noted to BUE. Murmur noted during auscultation of heart sounds. HTN noted this shift. Breakdown noted to coccyx and heels. F/C patent and draining clear, yellow urine at bedside. Pt being turned Q2H. Teds not tolerated due to ulcer on maría elena heels. No acute distress noted. Will continue to monitor.
--- NOTE | 2017-12-07 05:00 | PC.NURSE ---
NSR with prolonged QT internal noted on athletic monitor.
--- NOTE | 2017-12-07 05:16 | PC.NURSE ---
Residual at 0510 10 mL, increased tube feed rate to 63 goal rate. Will continue to monitor.
[2017-12-07 05:20] LABS: POC Glucose,Bedside 175 mg/dL
[2017-12-07 05:20] LABS: POC Glucose,Bedside 159 mg/dL
[2017-12-07 06:57] LABS: Basophils % 0.2 % (0.1-2.0); Eosinophils % 0.3 % (0.1-12.0); Hematocrit 33.5 % (37.0-47.0); Hemoglobin 10.7 g/dL (12.2-16.2); Lymphocytes # 1.3 K/mm3 (0.7-4.5); Lymphocytes % 16.6 K/mm3 (10-50); Mean Corpuscular HGB Conc 31.8 g/dL (31.8-35.4); Mean Corpuscular Hemoglobin 28.3 pg (27.0-31.2); Mean Corpuscular Volume 88.8 fl (81-99); Mean Platelet Volume 8.9 fl (7.4-10.4); Monocytes # 0.3 K/mm3 (0.1-1.0); Monocytes % 4.4 % (1.7-9.3); Neutrophils % 78.5 % (37.0-80.0); Platelet Count 222 K/mm3 (142-424); Red Blood Count 3.77 M/mm3 (4.20-5.40); Red Cell Distribution Width 17.2 % (11.5-17.5); White Blood Count 7.6 K/mm3 (4.8-10.8)
[2017-12-07 07:09] LABS: Alanine Aminotransferase 78 U/L (12-78); Albumin Level 1.8 gm/dL (3.4-5.0); Albumin/Globulin Ratio 0.5 (1.1-1.8); Alkaline Phosphatase 62 U/L (46-116); Anion Gap 12.1 mEq/L (5-15); Aspartate Amino Transferase 45 U/L (15-37); Bilirubin,Total 0.8 mg/dL (0.2-1.0); Blood Urea Nitrogen 29 mg/dL (7-18); Calcium 7.4 mg/dL (8.5-10.1); Carbon Dioxide 28 mmol/L (21.0-32.0); Chloride 112 mmol/L (98-107); Creatinine Clearance Estimated 62 mL/min (0-300); Creatinine,Serum 0.91 mg/dL (0.55-1.02); Estimated Glomerular Filt Rate 60 ml/min (>60); GFR (African American) 73 ML/MIN (>60); Globulin 3.7 gm/dl (1.3-3.2); Glucose 150 mg/dL (74-106); Potassium 3.1 mmoL/L (3.5-5.1); Sodium 149 mmol/L (136-145); Total Protein,Serum 5.5 gm/dL (6.4-8.2)
--- NOTE | 2017-12-07 07:27 | PC.NURSE ---
REPORT GIVE TO Julisa GRECO W/C
--- NOTE | 2017-12-07 07:46 | PC.NURSE ---
report given to nicolas osorio rn
--- NOTE | 2017-12-07 08:28 | HMH.ACPN2 ---
Internal Medicine - PN: Subj *Date: 12/07/17 *Time: 08:28 Interval history: She is much more alert this AM. Responds appropriately to questions. Still with some cough. Denies pain. Exam Vital signs and Labs for Last 24 Hours: Temp Pulse Resp BP Pulse Ox 98.5 F 69 28 H 176/77 92 L 12/07/17 04:00 12/07/17 06:16 12/07/17 04:00 12/07/17 04:00 12/07/17 06:16 Laboratory Results - last 24 hr 12/06/17 09:34: POC Glucose 276 12/06/17 16:54: POC Glucose 275 12/06/17 20:27: POC Glucose 230 12/07/17 01:25: POC Glucose 175 12/07/17 05:04: POC Glucose 159 12/07/17 06:06: WBC 7.6, RBC 3.77 L, Hgb 10.7 L, Hct 33.5 L, MCV 88.8, MCH 28.3, MCHC 31.8, RDW 17.2, Plt Count 222, MPV 8.9, Neut % (Auto) 78.5, Lymph % (Auto) 16.6, [place] % (Auto) 4.4, Eos % (Auto) 0.3, Baso % (Auto) 0.2, Neut # (Auto) 6.0, Lymph # (Auto) 1.3, [place] # (Auto) 0.3, Eos # (Auto) 0.0, Baso # (Auto) 0.0 12/07/17 06:06: Sodium 149 H, Potassium 3.1 L, Chloride 112 H, Carbon Dioxide 28, Anion Gap 12.1, BUN 29 H, Creatinine 0.91, Estimated Creat Clear 62, Estimated GFR 60, Est GFR ( Amer) 73, Glucose 150 H, Calcium 7.4 L, Total Bilirubin 0.8, AST 45 H D, ALT 78, Alkaline Phosphatase 62, Total Protein 5.5 L, Albumin 1.8 L, Globulin 3.7 H, Albumin/Globulin Ratio 0.5 L I & O for Last 24 hours: Intake & Output 12/04/17 12/05/17 12/06/17 12/07/17 11:59 11:59 11:59 11:59 Intake Total 453 / 453 2436 / 2436 Output Total 2200 / 2200 1200 / 1200 Balance -1747 / -1747 1236 / 1236 Weight 182 lb 5 oz 180 lb 7 oz Microbiology Reports for the Last 24 Hours: Microbiology 12/05/17 10:09 Blood Blood Culture - Preliminary NO GROWTH AFTER 24 HOURS 12/05/17 10:09 Blood Blood Culture - Preliminary NO GROWTH AFTER 24 HOURS Narrative: Laboratory Results - last 24 hr 12/06/17 09:34: POC Glucose 276 12/06/17 16:54: POC Glucose 275 12/06/17 20:27: POC Glucose 230 12/07/17 01:25: POC Glucose 175 12/07/17 05:04: POC Glucose 159 12/07/17 06:06: WBC 7.6, RBC 3.77 L, Hgb 10.7 L, Hct 33.5 L, MCV 88.8, MCH 28.3, MCHC 31.8, RDW 17.2, Plt Count 222, MPV 8.9, Neut % (Auto) 78.5, Lymph % (Auto) 16.6, [place] % (Auto) 4.4, Eos % (Auto) 0.3, Baso % (Auto) 0.2, Neut # (Auto) 6.0, Lymph # (Auto) 1.3, [place] # (Auto) 0.3, Eos # (Auto) 0.0, Baso # (Auto) 0.0 12/07/17 06:06: Sodium 149 H, Potassium 3.1 L, Chloride 112 H, Carbon Dioxide 28, Anion Gap 12.1, BUN 29 H, Creatinine 0.91, Estimated Creat Clear 62, Estimated GFR 60, Est GFR ( Amer) 73, Glucose 150 H, Calcium 7.4 L, Total Bilirubin 0.8, AST 45 H D, ALT 78, Alkaline Phosphatase 62, Total Protein 5.5 L, Albumin 1.8 L, Globulin 3.7 H, Albumin/Globulin Ratio 0.5 L - Constitutional Comments: sitting up in bed. No resp distress - *Routine Respiratory Exam Comments: BB rales - *Routine Cardiovascular Exam Present: RRR - *Routine Extremities Exam Absent: edema Assessment and Plan (1) Pneumonia Current visit: Yes Status: Acute Qualifiers: Pneumonia type: aspiration pneumonia Category: Medical Code(s): J18.9 - Pneumonia, unspecified organism (2) UTI (urinary tract infection) Current visit: Yes Status: Acute Category: Medical Code(s): N39.0 - Urinary tract infection, site not specified (3) Hypotension Current visit: Yes Status: Acute Category: Medical Code(s): I95.9 - Hypotension, unspecified (4) Anemia Current visit: Yes Status: Acute Category: Medical Code(s): D64.9 - Anemia, unspecified (5) CVA (cerebrovascular accident) Current visit: Yes Status: Chronic Category: Medical Code(s): I63.9 - Cerebral infarction, unspecified (6) HTN (hypertension) Current visit: Yes Status: Chronic Category: Medical Code(s): I10 - Essential (primary) hypertension (7) Diabetes mellitus Current visit: Yes Status: Chronic Category: Medical Code(s): E11.9 - Type 2 diabetes abundio
--- NOTE | 2017-12-07 08:31 | P.PN_ITS ---
Internal Medicine - PN: Subj *Date: 12/07/17 *Time: 08:28 Interval history: She is much more alert this AM. Responds appropriately to questions. Still with some cough. Denies pain. Exam Vital signs and Labs for Last 24 Hours: Temp Pulse Resp BP Pulse Ox 98.5 F 69 28 H 176/77 92 L 12/07/17 04:00 12/07/17 06:16 12/07/17 04:00 12/07/17 04:00 12/07/17 06:16 Laboratory Results - last 24 hr 12/06/17 09:34: POC Glucose 276 12/06/17 16:54: POC Glucose 275 12/06/17 20:27: POC Glucose 230 12/07/17 01:25: POC Glucose 175 12/07/17 05:04: POC Glucose 159 12/07/17 06:06: WBC 7.6, RBC 3.77 L, Hgb 10.7 L, Hct 33.5 L, MCV 88.8, MCH 28.3 , MCHC 31.8, RDW 17.2, Plt Count 222, MPV 8.9, Neut % (Auto) 78.5, Lymph % (Auto ) 16.6, [place] % (Auto) 4.4, Eos % (Auto) 0.3, Baso % (Auto) 0.2, Neut # (Auto) 6.0, Lymph # (Auto) 1.3, [place] # (Auto) 0.3, Eos # (Auto) 0.0, Baso # (Auto) 0.0 12/07/17 06:06: Sodium 149 H, Potassium 3.1 L, Chloride 112 H, Carbon Dioxide 28 , Anion Gap 12.1, BUN 29 H, Creatinine 0.91, Estimated Creat Clear 62, Estimated GFR 60, Est GFR ( Amer) 73, Glucose 150 H, Calcium 7.4 L, Total Bilirubin 0.8, AST 45 H D, ALT 78, Alkaline Phosphatase 62, Total Protein 5.5 L, Albumin 1.8 L, Globulin 3.7 H, Albumin/Globulin Ratio 0.5 L I & O for Last 24 hours: Intake & Output 12/04/17 12/05/17 12/06/17 12/07/17 11:59 11:59 11:59 11:59 Intake Total 453 / 453 2436 / 2436 Output Total 2200 / 2200 1200 / 1200 Balance -1747 / -1747 1236 / 1236 Weight 182 lb 5 oz 180 lb 7 oz Microbiology Reports for the Last 24 Hours: Microbiology 12/05/17 10:09 Blood Blood Culture - Preliminary NO GROWTH AFTER 24 HOURS 12/05/17 10:09 Blood Blood Culture - Preliminary NO GROWTH AFTER 24 HOURS Narrative: Laboratory Results - last 24 hr 12/06/17 09:34: POC Glucose 276 12/06/17 16:54: POC Glucose 275 12/06/17 20:27: POC Glucose 230 12/07/17 01:25: POC Glucose 175 12/07/17 05:04: POC Glucose 159 12/07/17 06:06: WBC 7.6, RBC 3.77 L, Hgb 10.7 L, Hct 33.5 L, MCV 88.8, MCH 28.3 , MCHC 31.8, RDW 17.2, Plt Count 222, MPV 8.9, Neut % (Auto) 78.5, Lymph % (Auto ) 16.6, [place] % (Auto) 4.4, Eos % (Auto) 0.3, Baso % (Auto) 0.2, Neut # (Auto) 6.0, Lymph # (Auto) 1.3, [place] # (Auto) 0.3, Eos # (Auto) 0.0, Baso # (Auto) 0.0 12/07/17 06:06: Sodium 149 H, Potassium 3.1 L, Chloride 112 H, Carbon Dioxide 28 , Anion Gap 12.1, BUN 29 H, Creatinine 0.91, Estimated Creat Clear 62, Estimated GFR 60, Est GFR ( Amer) 73, Glucose 150 H, Calcium 7.4 L, Total Bilirubin 0.8, AST 45 H D, ALT 78, Alkaline Phosphatase 62, Total Protein 5.5 L, Albumin 1.8 L, Globulin 3.7 H, Albumin/Globulin Ratio 0.5 L - Constitutional Comments: sitting up in bed. No resp distress - *Routine Respiratory Exam Comments: BB rales - *Routine Cardiovascular Exam Present: RRR - *Routine Extremities Exam Absent: edema Assessment and Plan (1) Pneumonia Current visit: Yes Status: Acute Qualifiers: Pneumonia type: aspiration pneumonia Category: Medical Code(s): J18.9 - Pneumonia, unspecified organism (2) UTI (urinary tract infection) Current visit: Yes Status: Acute Category: Medical Code(s): N39.0 - Urinary tract infection, site not specified (3) Hypotension Current visit: Yes Status: Acute Category: Medical Code(s): I95.9 - Hypotension, unspecified
--- NOTE | 2017-12-07 08:34 | XR_ITS ---
XR chest portable HISTORY: ITS.REASON: f/u pneumonia ORDERING PHYSICIAN: Rishabh Resendez MD PATIENT AGE: 76 years COMPARISON: 12/05/2017 FINDINGS: The cardiomediastinal silhouette and pulmonary vascularity are within normal limits. Patchy areas of infiltrate are once again noted in both lower lobes and have slightly improved. Upper lobes are clear. There are minimal atelectatic changes in the left lung base. IMPRESSION: Persistent but slightly improved bibasilar pneumonia
--- NOTE | 2017-12-07 11:09 | DIET.NUTRFU ---
Pt receiving Glucerna TF at goal rate of 63mL/hr continuos. Pt receiving an additional scoop of beneprotein in 30 mL of free water three times a day. Pt is tolerating TF with little residuals this shift per RN. Will continue with current plan of care and monitor.
--- NOTE | 2017-12-07 11:34 | HMH.PTEV ---
Physical Therapy Evaluation Rehab PT IP Evaluation Start: 12/07/17 08:34 Freq: ONCE Status: Active Protocol: Document 12/07/17 11:29 PHORHUGO (Rec: 12/07/17 11:34 PHORNE [id number]) Subjective/History History History 76 yof adm to [facility] with multiple decubitus ulcers and hx of multiple CVA with left hemiplegia. Subjective Subjective Pt currently c/o pain with any movement of right LE. Rehab PT IP Eval Objective Appearance Patient Behavior Cooperative Confused Patient Orientation Person Place Difficulty following instructions mild Speech Pattern Clear Ambulation Patient Able to Ambulate No Balance Ability to Arise Unable Sitting Balance Leans or slides in chair Dynamic Sitting Balance Ability Poor Transfers Bed Transfer Ability Total/Dependent (100%) ROM All Extremities PT ROM Status WFL MMT LLE PT MMT ABN Abnormal MMT Grade 0/5 LUE PT MMT ABN Abnormal MMT Grade 0/5 RLE Abnormal MMT Grade grossly 2-/5 RUE Abnormal MMT Grade grossly 3/5 Rehab PT IP prob,goals,plan Problems Date of Evaluation: 12/07/17 PT IP Problems Bed Mobility Transfers Self care Rehab Potential Rehab Potential Fair Plan PT Intervention Plan Bed Mobility Therapeutic Exercise PT Plan Frequency BID Duration LOS Discharge Goals Bed Transfer Ability Maximum x 2 (75% assist) Discharge Plan PT Discharge Plan Pt is most appropriate for SNF placement at this time. G -code Required Yes Eval Complexity Eval Charge Codes 34367 - High Complexity G Codes PT Current Status Mobility PT Current Status Modifier CM-At least 80% but less than 100% impaired, limited or restricted PT Goal Status Mobility PT Goal Status Modifer CM-At least 80% but less than 100% impaired, limited or restricted PHYSICIAN CERTIFICATION: I certify the specified therapy services for Alla Leslie are required, authorized, and reviewed every 30 days.
--- NOTE | 2017-12-07 12:27 | SW/DCPLANNER ---
Addendum entered by Kamilla Adler 12/07/17 16:05: Information has also been faxed to [facility] in [place] and I have spoke with admission coordinator June. Patient information has been faxed and I will follow up with June on Sunday. [facility] phone: [phone] fax: [phone] Original Note: Addendum entered by Kamilla Babb 12/07/17 15:38: Patient information has also been faxed to [facility] ([place]). Thao at [facility] has stated that they can not start accepting patients till Sunday due to flu. Patient information has also been faxed to Eric ([facility]) to [place]. I will follow up with facilities and patients family on Sunday. [facility] phone: [phone] fax: [phone] [facility] phone: [phone] fax: [phone] Original Note: Addendum entered by Kamilla Adler 12/07/17 13:24: I have spoke with patients daughter this afternoon. Daughter has stated that she does NOT want this patient to return to [facility] in [facility]. Daughter has stated that she would like for patient to go to [facility], I have contacted this place and this is a retired living home and not a skilled facility. I have also contacted [facility] and patient has been faxed to this facility. Daughter has also that I call [facility] nursing [facility] re[facility]. I have spoke with Princess in admissions and she has stated that she does not think she will have a fdc bed soon but asked that patient information be faxed. Information has been faxed to [facility] and [facility] at this time. [facility] ([facility]) phone- [phone] fax- [phone] [facility] ([facility]) phone- [phone] [phone] Original Note: This case has been accept by [employer]. The worker for this case is Corinne Bautista. Corinne made a visit to see this patient this morning and further explore this situation. I will keep in contact with Corinne throughout this patients stay at [facility].
[2017-12-07 13:17] LABS: Vancomycin,Trough 19.8 mcg/ml (10.0-20.0)
--- NOTE | 2017-12-07 13:26 | PC.NURSE ---
pt is resting in bed, receiving tube feedings continuously, pt has not complained of any discomfort, alert and oriented x2. pt has been turned and repositioned q2h. pt has a stage 2 noted to the coccyx and scattered abrasions. there is a unstageable wound noted to the rt heel, pt also has scattered bruising and abrasions, pt has only had a total of 20 ml's residual so far this shift. i have checked the residual q4h b/c the nurse that had pt last night stated that pt had 90 ml's residual at one time and she had to stop tube feedings for a couple of hours. pt has had a total of 2 scoops of beneprotein with 60 ml's total of water ( one scoop with 30 ml's at 0800 and another scoop with 30 ml's at 1300). pt has crackles in the rt lung bases, bowel sounds hyperactive. pt has had all her meds crushed through g-tube this shift.
--- NOTE | 2017-12-07 13:38 | HMH.PHACONS ---
- Pharmacy Consult Date: 12/07/17 Time: 13:39 Referring provider: DR. AVENDAÑO Reason for Consult:: VANCOMYCIN LEVEL AND DOSE CHANGE Allergies and ADEs:: Allergies Allergy/AdvReac Type Severity Reaction Status Date / Time diltiazem [From Cardizem] Allergy Unknown Verified 12/05/17 09:56 Home Medications:: Home Medications Medication Instructions Recorded Confirmed Type Apixaban [Eliquis] 5 mg NG-TUBE BID 12/05/17 12/05/17 History Ascorbic Acid [Vitamin C] 500 mg NG-TUBE DAILY 12/05/17 12/07/17 History Aspirin [Aspirin 81mg EC Tab] 81 mg NG-TUBE DAILY 12/05/17 12/05/17 History Citalopram Hydrobromide [Celexa 20 mg NG-TUBE DAILY 12/05/17 12/05/17 History 20mg Tablet] Diclofenac Sodium [Diclofenac Sod 2 gm TP QID 12/05/17 12/05/17 History 100gm Topical Gel] Ferrous Sulfate [Ferrous Sulfate 300 mg NG-TUBE DAILY 12/05/17 12/05/17 History 300mg/5mL Udc] Hydralazine HCl 50 mg NG-TUBE Q8H 12/05/17 12/05/17 History Labetalol HCl [Normodyne 200mg 200 mg NG-TUBE Q8H 12/05/17 12/05/17 History tablet] Methylphenidate HCl [Ritalin] 10 mg NG-TUBE DAILY 12/05/17 12/05/17 History Mirtazapine [Remeron] 15 mg NG-TUBE DAILY 12/05/17 12/05/17 History Multivitamin,Ther and Minerals 1 each NG-TUBE DAILY 12/05/17 12/05/17 History [Vitamin and Minerals] Nystatin [Nystatin Oint 100,000 10 ml G-TUBE Q8H 12/05/17 12/05/17 History Units/GM 15GM] Pantoprazole Sodium [Protonix 40mg 40 mg NG-TUBE DAILY 12/05/17 12/05/17 History tablet] Acetaminophen [Acetaminophen 15.6 ml NG-TUBE Q6HP PRN 12/06/17 12/06/17 History 160mg/5mL 30mL bottle] Atorvastatin Calcium [Atorvastatin 80 mg PO HS 12/06/17 12/06/17 History 80mg Tab] Bisacodyl [Biscolax] 10 mg RC DAILY 12/06/17 12/06/17 History Insulin Aspart [Novolog] 0 unit SQ ACHS 12/06/17 12/07/17 History Insulin Detemir [Levemir 100 25 units SQ HS 12/06/17 12/07/17 History units/mL 10mL vial] Lidocaine [Lidoderm 5% transdermal 1 each TP Q24H 12/06/17 12/06/17 History patch] Nitroglycerin [Nitrostat 0.4mg SL 0.4 mg SL Q5MINP PRN MDD 3 doses 12/06/17 12/06/17 History Tablet] Polyethylene Glycol 3350 [Miralax 17 gm PO DAILY 12/06/17 12/06/17 History Powder] Collagenase Clostridium Hist. 1 applic TP NEEDED PRN 12/07/17 12/07/17 History [Santyl Ointment 30gm] Height: 1.57 m Weight: 81.845 kg Laboratory Results:: Laboratory Results - last 24 hr 12/06/17 16:54: POC Glucose 275 12/06/17 20:27: POC Glucose 230 12/07/17 01:25: POC Glucose 175 12/07/17 05:04: POC Glucose 159 12/07/17 06:06: WBC 7.6, RBC 3.77 L, Hgb 10.7 L, Hct 33.5 L, MCV 88.8, MCH 28.3, MCHC 31.8, RDW 17.2, Plt Count 222, MPV 8.9, Neut % (Auto) 78.5, Lymph % (Auto) 16.6, [place] % (Auto) 4.4, Eos % (Auto) 0.3, Baso % (Auto) 0.2, Neut # (Auto) 6.0, Lymph # (Auto) 1.3, [place] # (Auto) 0.3, Eos # (Auto) 0.0, Baso # (Auto) 0.0 12/07/17 06:06: Sodium 149 H, Potassium 3.1 L, Chloride 112 H, Carbon Dioxide 28, Anion Gap 12.1, BUN 29 H, Creatinine 0.91, Estimated Creat Clear 62, Estimated GFR 60, Est GFR ( Amer) 73, Glucose 150 H, Calcium 7.4 L, Total Bilirubin 0.8, AST 45 H D, ALT 78, Alkaline Phosphatase 62, Total Protein 5.5 L, Albumin 1.8 L, Globulin 3.7 H, Albumin/Globulin Ratio 0.5 L 12/07/17 12:30: Vancomycin Trough 19.8 Medical History: Reports:: Cerebrovascular Accident, Diabetes Mellitus Type 2, Gastroesophageal Reflux Disease(GERD), Gastrointestinal Bleed, Hypertension, Urinary Tract Infection Denies:: Cancer, Diabetes Mellitus Type 1, MRSA Assessment and Plan (1) Pneumonia Current visit: Yes Status: Acute Qualifiers: Pneumonia type: aspiration pneumonia Category: Medical Code(s): J18.9 - Pneumonia, unspecified organism (2) UTI (urinary tract infection) Current visit: Yes Status: Acute Category: Medical Code(s): N39.0 - Urinary tract infection, site not specified (3) Hypotension Current visit: Yes Status: Acute Category: Medical Code(s):
--- NOTE | 2017-12-07 13:41 | P.CONPHA_ITS ---
- Pharmacy Consult Date: 12/07/17 Time: 13:39 Referring provider: DR. AVENDAÑO Reason for Consult:: VANCOMYCIN LEVEL AND DOSE CHANGE Allergies and ADEs:: Allergies Allergy/AdvReac Type Severity Reaction Status Date / Time diltiazem [From Cardizem] Allergy Unknown Verified 12/05/17 09:56 Home Medications:: Home Medications Medication Instructions Recorded Confirmed Type Apixaban [Eliquis] 5 mg NG-TUBE BID 12/05/17 12/05/17 History Ascorbic Acid [Vitamin C] 500 mg NG-TUBE DAILY 12/05/17 12/07/17 History Aspirin [Aspirin 81mg EC Tab] 81 mg NG-TUBE DAILY 12/05/17 12/05/17 History Citalopram Hydrobromide [Celexa 20 mg NG-TUBE DAILY 12/05/17 12/05/17 History 20mg Tablet] Diclofenac Sodium [Diclofenac Sod 2 gm TP QID 12/05/17 12/05/17 History 100gm Topical Gel] Ferrous Sulfate [Ferrous Sulfate 300 mg NG-TUBE DAILY 12/05/17 12/05/17 History 300mg/5mL Udc] Hydralazine HCl 50 mg NG-TUBE Q8H 12/05/17 12/05/17 History Labetalol HCl [Normodyne 200mg 200 mg NG-TUBE Q8H 12/05/17 12/05/17 History tablet] Methylphenidate HCl [Ritalin] 10 mg NG-TUBE DAILY 12/05/17 12/05/17 History Mirtazapine [Remeron] 15 mg NG-TUBE DAILY 12/05/17 12/05/17 History Multivitamin,Ther and Minerals 1 each NG-TUBE DAILY 12/05/17 12/05/17 History [Vitamin and Minerals] Nystatin [Nystatin Oint 100,000 10 ml G-TUBE Q8H 12/05/17 12/05/17 History Units/GM 15GM] Pantoprazole Sodium [Protonix 40mg 40 mg NG-TUBE DAILY 12/05/17 12/05/17 History tablet] Acetaminophen [Acetaminophen 15.6 ml NG-TUBE Q6HP PRN 12/06/17 12/06/17 History 160mg/5mL 30mL bottle] Atorvastatin Calcium [Atorvastatin 80 mg PO HS 12/06/17 12/06/17 History 80mg Tab] Bisacodyl [Biscolax] 10 mg RC DAILY 12/06/17 12/06/17 History Insulin Aspart [Novolog] 0 unit SQ ACHS 12/06/17 12/07/17 History Insulin Detemir [Levemir 100 25 units SQ HS 12/06/17 12/07/17 History units/mL 10mL vial] Lidocaine [Lidoderm 5% transdermal 1 each TP Q24H 12/06/17 12/06/17 History patch] Nitroglycerin [Nitrostat 0.4mg SL 0.4 mg SL Q5MINP PRN MDD 3 doses 12/06/17 History Tablet] Polyethylene Glycol 3350 [Miralax 17 gm PO DAILY 12/06/17 12/06/17 History Powder] Collagenase Clostridium Hist. 1 applic TP NEEDED PRN 12/07/17 12/07/17 History [Santyl Ointment 30gm] Height: 1.57 m Weight: 81.845 kg Laboratory Results:: Laboratory Results - last 24 hr 12/06/17 16:54: POC Glucose 275 12/06/17 20:27: POC Glucose 230 12/07/17 01:25: POC Glucose 175 12/07/17 05:04: POC Glucose 159 12/07/17 06:06: WBC 7.6, RBC 3.77 L, Hgb 10.7 L, Hct 33.5 L, MCV 88.8, MCH 28.3 , MCHC 31.8, RDW 17.2, Plt Count 222, MPV 8.9, Neut % (Auto) 78.5, Lymph % (Auto ) 16.6, [place] % (Auto) 4.4, Eos % (Auto) 0.3, Baso % (Auto) 0.2, Neut # (Auto) 6.0, Lymph # (Auto) 1.3, [place] # (Auto) 0.3, Eos # (Auto) 0.0, Baso # (Auto) 0.0 12/07/17 06:06: Sodium 149 H, Potassium 3.1 L, Chloride 112 H, Carbon Dioxide 28 , Anion Gap 12.1, BUN 29 H, Creatinine 0.91, Estimated Creat Clear 62, Estimated GFR 60, Est GFR ( Amer) 73, Glucose 150 H, Calcium 7.4 L, Total Bilirubin 0.8, AST 45 H D, ALT 78, Alkaline Phosphatase 62, Total Protein 5.5 L, Albumin 1.8 L, Globulin 3.7 H, Albumin/Globulin Ratio 0.5 L 12/07/17 12:30: Vancomycin Trough 19.8 Medical History: Reports:: Cerebrovascular Accident, Diabetes Mellitus Type 2,
--- NOTE | 2017-12-07 15:35 | HMH.GSPN ---
Subjective Patient reports: no new complaints (Stable overnight) Exam Vital signs and Labs for Last 24 Hours: Temp Pulse Resp BP Pulse Ox 98.6 F 70 16 184/72 96 12/07/17 11:39 12/07/17 12:00 12/07/17 11:39 12/07/17 11:39 12/07/17 11:39 Laboratory Results - last 24 hr 12/06/17 16:54: POC Glucose 275 12/06/17 20:27: POC Glucose 230 12/07/17 01:25: POC Glucose 175 12/07/17 05:04: POC Glucose 159 12/07/17 06:06: WBC 7.6, RBC 3.77 L, Hgb 10.7 L, Hct 33.5 L, MCV 88.8, MCH 28.3, MCHC 31.8, RDW 17.2, Plt Count 222, MPV 8.9, Neut % (Auto) 78.5, Lymph % (Auto) 16.6, [place] % (Auto) 4.4, Eos % (Auto) 0.3, Baso % (Auto) 0.2, Neut # (Auto) 6.0, Lymph # (Auto) 1.3, [place] # (Auto) 0.3, Eos # (Auto) 0.0, Baso # (Auto) 0.0 12/07/17 06:06: Sodium 149 H, Potassium 3.1 L, Chloride 112 H, Carbon Dioxide 28, Anion Gap 12.1, BUN 29 H, Creatinine 0.91, Estimated Creat Clear 62, Estimated GFR 60, Est GFR ( Amer) 73, Glucose 150 H, Calcium 7.4 L, Total Bilirubin 0.8, AST 45 H D, ALT 78, Alkaline Phosphatase 62, Total Protein 5.5 L, Albumin 1.8 L, Globulin 3.7 H, Albumin/Globulin Ratio 0.5 L 12/07/17 12:30: Vancomycin Trough 19.8 I & O for Last 24 hours: Intake & Output 12/05/17 12/06/17 12/07/17 12/08/17 11:59 11:59 11:59 11:59 Intake Total 453 / 453 2586 / 2586 Output Total 2200 / 2200 1200 / 1200 Balance -1747 / -1747 1386 / 1386 Weight 182 lb 5 oz 180 lb 7 oz 180 lb 7 oz Microbiology Reports for the Last 24 Hours: Microbiology 12/05/17 10:09 Blood Blood Culture - Preliminary NO GROWTH AFTER 48 HOURS 12/05/17 10:09 Blood Blood Culture - Preliminary NO GROWTH AFTER 48 HOURS - Constitutional no acute distress - *Routine Abdominal Exam Present: soft. Absent: tenderness (Gastrostomy tube site still with minor irritation but no evidence of any infection. Functioning well) Progress Note: A&P (1) Anemia Status: Acute Assessment and plan: Hemoglobin hematocrit has been stable. No need for any upper endoscopy at this time. Risk would likely outweigh the benefits given her recent PEG tube and hypernatremia. No further surgical recommendations at this time. Current Visit: Yes (2) CVA (cerebrovascular accident) Status: Chronic Current Visit: Yes (3) HTN (hypertension) Status: Chronic Current Visit: Yes (4) Diabetes mellitus Status: Chronic Current Visit: Yes (5) Pneumonia Status: Acute Current Visit: Yes (6) UTI (urinary tract infection) Status: Acute Current Visit: Yes
--- NOTE | 2017-12-07 17:48 | PC.NURSE ---
PT HAD 20 ML'S RESIDUAL AT AT 1715
[2017-12-08] VITALS (14 sets, daily range): BP systolic 106–171; BP diastolic 40–78; PULSE 60–91; RESP 20–24; TEMP 36.2–36.7; O2SAT 92–96
[2017-12-08 01:00] LABS: POC Glucose,Bedside 173 mg/dL
--- NOTE | 2017-12-08 03:46 | PC.NURSE ---
PATIENT HAS BEEN RESTING WELL THIS SHIFT. PATIENT HAS REMAINED AFEBRILE WITH NO S/S OF PAIN OR DISTRESS. B/P HAS BEEN ELEVATED BUT APPEARS TO BE CLOSE TO BASELINE FOR THIS PATIENT. LEFT LUNG CONTINUES TO HAVE RHONCHI, O2 SATS HAVE REMAINED IN LOW TO MID 90S ON 2L PER NC. HEAD OF BED IS ELEVATED AT APPROXIMATELY 45 DEGREES. BOWEL SOUNDS ARE HYPOACTIVE. RESIDUAL CHECKED AT 2000, WAS 10 ML, CHECKED AGAIN AT 0000 THERE WAS CLOSE TO 20 ML, AT 0300 THERE WAS 30 ML. SHUT PUMP OFF AT 0315, WILL CONTINUE TO MONITOR. POLYMEM ON RIGHT HEEL. HEEL FLOATING DUE TO DECUBITUS. PATIENT HAS BEEN TURNED SIDE TO SIDE EVERY 2 HOURS. BUE CONTINUE TO HAVE PITTING EDEMA AND LEFT ARM IS FLACCID. CHECKED G-TUBE FOR PLACEMENT, PATENT AND HAS BEEN INFUSING. RED AND DRAINING AROUND INSERTION SITE. 2X2S REPLACED. VSS, BED IN LOW POSITION, CALL LIGHT WITHIN REACH. NO ACUTE CHANGES. WILL CONTINUE TO MONITOR.
[2017-12-08 05:33] LABS: POC Glucose,Bedside 198 mg/dL
--- NOTE | 2017-12-08 08:12 | XR_ITS ---
XR hip RT 2-3V w/pelvis HISTORY: Right hip pain ITS.REASON: pain ORDERING PHYSICIAN: Rishabh Resendez MD PATIENT AGE: 76 years COMPARISON: None FINDINGS: There are mild osteoarthritic changes in both hips with decrease in the joint space superiorly and mild osteosclerosis of the acetabular roof. No fracture or dislocation. No lytic or blastic change. Generalized vascular calcification noted. IMPRESSION: Mild osteoarthritic change of the hips
--- NOTE | 2017-12-08 08:12 | XR_ITS ---
XR knee RT 2V HISTORY: Right knee pain ITS.REASON: pain ORDERING PHYSICIAN: Rishabh Resendez MD PATIENT AGE: 76 years COMPARISON: None FINDINGS: No fracture or dislocation. No lytic or blastic change. Normal mineralization. There are moderate osteoarthritic changes of the medial compartment and patellofemoral joint with decrease in the joint space and osteophyte formation. No acute fracture or dislocation. No other significant findings IMPRESSION: Moderate osteoarthritis
--- NOTE | 2017-12-08 08:16 | HMH.ACPN2 ---
Internal Medicine - PN: Subj *Date: 12/08/17 *Time: 08:16 Interval history: Rested well overnight. Alert and answers questions appropriately although somewhat slow to answer. Exam Vital signs and Labs for Last 24 Hours: Temp Pulse Resp BP Pulse Ox 98.1 F 63 24 147/78 93 L 12/08/17 07:49 12/08/17 07:49 12/08/17 07:49 12/08/17 07:49 12/08/17 07:49 Laboratory Results - last 24 hr 12/07/17 12:30: Vancomycin Trough 19.8 12/07/17 21:45: POC Glucose 173 12/08/17 04:32: POC Glucose 198 I & O for Last 24 hours: Intake & Output 12/05/17 12/06/17 12/07/17 12/08/17 11:59 11:59 11:59 11:59 Intake Total 453 / 453 2586 / 2586 3267 / 3267 Output Total 2200 / 2200 1200 / 1200 950 / 950 Balance -1747 / -1747 1386 / 1386 2317 / 2317 Weight 182 lb 5 oz 180 lb 7 oz 180 lb 7 oz Microbiology Reports for the Last 24 Hours: Microbiology 12/05/17 10:09 Blood Blood Culture - Preliminary NO GROWTH AFTER 48 HOURS 12/05/17 10:09 Blood Blood Culture - Preliminary NO GROWTH AFTER 48 HOURS - Constitutional no acute distress - *Routine Respiratory Exam Comments: scattered rhonchi with BB rales. - *Routine Cardiovascular Exam Present: RRR - *Routine Abdominal Exam Present: soft Comments: slightly disteneded, NT - *Routine Extremities Exam Absent: edema Comments: seems to have pain in left hip and knee with passive ROM. Particularly guards her knee. Assessment and Plan (1) Pneumonia Current visit: Yes Status: Acute Qualifiers: Pneumonia type: aspiration pneumonia Category: Medical Code(s): J18.9 - Pneumonia, unspecified organism (2) UTI (urinary tract infection) Current visit: Yes Status: Acute Category: Medical Code(s): N39.0 - Urinary tract infection, site not specified (3) Hypotension Current visit: Yes Status: Acute Category: Medical Code(s): I95.9 - Hypotension, unspecified (4) Anemia Current visit: Yes Status: Acute Category: Medical Code(s): D64.9 - Anemia, unspecified (5) CVA (cerebrovascular accident) Current visit: Yes Status: Chronic Category: Medical Code(s): I63.9 - Cerebral infarction, unspecified (6) HTN (hypertension) Current visit: Yes Status: Chronic Category: Medical Code(s): I10 - Essential (primary) hypertension (7) Diabetes mellitus Current visit: Yes Status: Chronic Category: Medical Code(s): E11.9 - Type 2 diabetes mellitus without complications (8) PEG (percutaneous endoscopic gastrostomy) status Current visit: Yes Status: Acute Category: Surgical Code(s): Z93.1 - Gastrostomy status (9) Dysphagia as late effect of cerebrovascular accident (CVA) Current visit: Yes Status: Acute Category: Medical Code(s): I69.391 - Dysphagia following cerebral infarction (10) Decubitus ulcers Current visit: Yes Status: Acute Category: Medical Code(s): L89.90 - Pressure ulcer of unspecified site, unspecified stage (11) Right hip pain Current visit: Yes Status: Acute Category: Medical Code(s): M25.551 - Pain in right hip (12) Right knee pain Current visit: Yes Status: Acute Category: Medical Code(s): M25.561 - Pain in right knee (13) Hypokalemia Current visit: Yes Status: Acute Category: Medical Code(s): E87.6 - [place]lemia - Assessment and plan all Dx Assessment and Plan for all problems:: Tube feedings are at goal rate. Will d/c IV fluids. Replace K+ per G-tube. Xray right hip and knee. Continue current antibiotics. Awaiting placement
--- NOTE | 2017-12-08 08:19 | P.PN_ITS ---
Internal Medicine - PN: Subj *Date: 12/08/17 *Time: 08:16 Interval history: Rested well overnight. Alert and answers questions appropriately although somewhat slow to answer. Exam Vital signs and Labs for Last 24 Hours: Temp Pulse Resp BP Pulse Ox 98.1 F 63 24 147/78 93 L 12/08/17 07:49 12/08/17 07:49 12/08/17 07:49 12/08/17 07:49 12/08/17 07:49 Laboratory Results - last 24 hr 12/07/17 12:30: Vancomycin Trough 19.8 12/07/17 21:45: POC Glucose 173 12/08/17 04:32: POC Glucose 198 I & O for Last 24 hours: Intake & Output 12/05/17 12/06/17 12/07/17 12/08/17 11:59 11:59 11:59 11:59 Intake Total 453 / 453 2586 / 2586 3267 / 3267 Output Total 2200 / 2200 1200 / 1200 950 / 950 Balance -1747 / -1747 1386 / 1386 2317 / 2317 Weight 182 lb 5 oz 180 lb 7 oz 180 lb 7 oz Microbiology Reports for the Last 24 Hours: Microbiology 12/05/17 10:09 Blood Blood Culture - Preliminary NO GROWTH AFTER 48 HOURS 12/05/17 10:09 Blood Blood Culture - Preliminary NO GROWTH AFTER 48 HOURS - Constitutional no acute distress - *Routine Respiratory Exam Comments: scattered rhonchi with BB rales. - *Routine Cardiovascular Exam Present: RRR - *Routine Abdominal Exam Present: soft Comments: slightly disteneded, NT - *Routine Extremities Exam Absent: edema Comments: seems to have pain in left hip and knee with passive ROM. Particularly guards her knee. Assessment and Plan (1) Pneumonia Current visit: Yes Status: Acute Qualifiers: Pneumonia type: aspiration pneumonia Category: Medical Code(s): J18.9 - Pneumonia, unspecified organism (2) UTI (urinary tract infection) Current visit: Yes Status: Acute Category: Medical Code(s): N39.0 - Urinary tract infection, site not specified (3) Hypotension Current visit: Yes Status: Acute Category: Medical Code(s): I95.9 - Hypotension, unspecified (4) Anemia Current visit: Yes Status: Acute Category: Medical Code(s): D64.9 - Anemia , unspecified (5) CVA (cerebrovascular accident) Current visit: Yes Status: Chronic Category: Medical Code(s): I63.9 - Cerebral infarction, unspecified (6) HTN (hypertension) Current visit: Yes Status: Chronic Category: Medical Code(s): I10 - Essential (primary) hypertension (7) Diabetes mellitus Current visit: Yes Status: Chronic Category: Medical Code(s): E11.9 - Type 2 diabetes mellitus without complications (8) PEG (percutaneous endoscopic gastrostomy) status Current visit: Yes Status: Acute Category: Surgical Code(s): Z93.1 - Gastrostomy status (9) Dysphagia as late effect of cerebrovascular accident (CVA) Current visit: Yes Status: Acute Category: Medical Code(s): I69.391 - Dysphagia following cerebral infarction (10) Decubitus ulcers Current visit: Yes Status: Acute Category: Medical Code(s): L89.90 - Pressure ulcer of unspecified site, unspecified stage (11) Right hip pain Current visit: Yes Status: Acute Category: Medical Code(s): M25.551 - Pain in right hip (12) Right knee pain Current visit: Yes Status: Acute Category: Medical Code(s): M25.561 - Pain in right knee (13) Hypokalemia Current visit: Yes Status: Acute Category: Medical Code(s): E87.6 - [place]
--- NOTE | 2017-12-08 14:03 | P.PN_ITS ---
Internal Medicine - PN: Subj *Date: 12/08/17 *Time: 14:03 Exam Vital signs and Labs for Last 24 Hours: Temp Pulse Resp BP Pulse Ox 97.8 F 68 20 135/61 95 12/08/17 11:19 12/08/17 11:19 12/08/17 11:19 12/08/17 11:19 12/08/17 11:19 Laboratory Results - last 24 hr 12/07/17 21:45: POC Glucose 173 12/08/17 04:32: POC Glucose 198 I & O for Last 24 hours: Intake & Output 12/05/17 12/06/17 12/07/17 12/08/17 23:59 23:59 23:59 23:59 Intake Total 270 / 270 1746 / 1746 2464 / 2464 1975 Output Total 700 / 700 1500 / 1500 1800 / 1800 350 / 350 Balance -430 / -430 246 / 246 664 / 664 1626 / 1626 Weight 82.696 kg 81.845 kg 81.845 kg Microbiology Reports for the Last 24 Hours: Microbiology 12/05/17 10:09 Blood Blood Culture - Preliminary NO GROWTH AFTER 72 HOURS 12/05/17 10:09 Blood Blood Culture - Preliminary NO GROWTH AFTER 72 HOURS Assessment and Plan (1) Pneumonia Current visit: Yes Status: Acute Qualifiers: Pneumonia type: aspiration pneumonia Category: Medical Code(s): J18.9 - Pneumonia, unspecified organism (2) UTI (urinary tract infection) Current visit: Yes Status: Acute Category: Medical Code(s): N39.0 - Urinary tract infection, site not specified (3) Hypotension Current visit: Yes Status: Acute Category: Medical Code(s): I95.9 - Hypotension, unspecified (4) Anemia Current visit: Yes Status: Acute Category: Medical Code(s): D64.9 - Anemia , unspecified (5) CVA (cerebrovascular accident) Current visit: Yes Status: Chronic Category: Medical Code(s): I63.9 - Cerebral infarction, unspecified (6) HTN (hypertension) Current visit: Yes Status: Chronic Category: Medical Code(s): I10 - Essential (primary) hypertension (7) Diabetes mellitus Current visit: Yes Status: Chronic Category: Medical Code(s): E11.9 - Type 2 diabetes mellitus without complications (8) PEG (percutaneous endoscopic gastrostomy) status Current visit: Yes Status: Acute Category: Surgical Code(s): Z93.1 - Gastrostomy status (9) Dysphagia as late effect of cerebrovascular accident (CVA) Current visit: Yes Status: Acute Category: Medical Code(s): I69.391 - Dysphagia following cerebral infarction (10) Decubitus ulcers Current visit: Yes Status: Acute Category: Medical Code(s): L89.90 - Pressure ulcer of unspecified site, unspecified stage (11) Right hip pain Current visit: Yes Status: Acute Category: Medical Code(s): M25.551 - Pain in right hip (12) Right knee pain Current visit: Yes Status: Acute Category: Medical Code(s): M25.561 - Pain in right knee (13) Hypokalemia Current visit: Yes Status: Acute Category: Medical Code(s): E87.6 - Hypokalemia The patient's infection will respond to the chosen ABx?: Yes Is the patient receiving the right drug, dose, and route?: Yes Could a more targeted ABx be ordered?: No
--- NOTE | 2017-12-08 15:16 | PC.NURSE ---
PT IS RESTING IN BED, TURNED AND REPOSITIONED Q2H, PT HAS SCATTERED ABRASIONS TO THE BLE, UNSTAGEABLE ULCER TO THE RT HEEL, STAGE 2 NOTED TO THE COCCYX. DRESSINGS INTACT TO THE RT HEEL AND COCCYX. LUNG SOUNDS HAVE SCATTERED CRACKLES AND RHONCHI, BOWEL SOUNDS NORMAL. SINCE SUPPOSITORY THIS MORNING PT HAS HAD 4 MODERATE/SOFT BOWEL MOVEMENTS. TUBE FEEDINGS ARE BACK AT THERE GOAL RATE. PT HAS NOT HAD ANYMORE THAN 10 ML'S RESIDUAL BOTH TIMES I CHECKED ( 0900 AND 1300 ).PT HAS HAD HER BENEPROTEIN 2X THIS SHIFT. ABOUT 15 MIN. AFTER GIVING PT HER MEDICATIONS THROUGH HER G-TUBE SHE VOMITED UP A SMALL AMOUNT OF ORANGE EMESIS THAT LOOKED LIKE THE POTASSIUM. PT HAS BEEN ALERT AND ORIENTED T/0 THE SHIFT AND HAS ANSWERED ALL QUESTIONS APPROPRIATELY. WILL CONTINUE TO MONITOR.
--- NOTE | 2017-12-08 17:15 | PC.NURSE ---
PT HAD A TOTAL OF 50 ML'S RESIDUAL AT 1700 AND SHE HAS HAD A TOTAL OF 6 LOOSE SEEPING STOOLS. TURNED FEEDINGS OFF FOR NOW AND WILL RECHECK RESIDUAL AROUND 1800.
--- NOTE | 2017-12-08 20:00 | PC.NURSE ---
0 ML TUBE FEED RESIDUAL NOTED AT THIS TIME.
[2017-12-09] VITALS (16 sets, daily range): BP systolic 101–141; BP diastolic 44–82; PULSE 60–88; RESP 16–22; TEMP 36.4–37.1; O2SAT 88–96
--- NOTE | 2017-12-09 | PC.NURSE ---
TUBE FEED RESIDUAL OF 0 ML AT THIS TIME. WILL CONTINUE TO MONITOR
--- NOTE | 2017-12-09 04:00 | PC.NURSE ---
TUBE FEED RESIDUAL OF 3 ML AT THIS TIME. WILL CONTINUE TO MONITOR.
[2017-12-09 04:43] LABS: POC Glucose,Bedside 130 mg/dL
[2017-12-09 06:40] LABS: Anion Gap 13.7 mEq/L (5-15); Blood Urea Nitrogen 29 mg/dL (7-18); Carbon Dioxide 25 mmol/L (21.0-32.0); Chloride 112 mmol/L (98-107); Creatinine Clearance Estimated 57 mL/min (0-300); Creatinine,Serum 1.08 mg/dL (0.55-1.02); Estimated Glomerular Filt Rate 49 ml/min (>60); GFR (African American) 60 ML/MIN (>60); Glucose 143 mg/dL (74-106); Sodium 148 mmol/L (136-145)
[2017-12-09 06:49] LABS: Potassium 2.7 mmoL/L (3.5-5.1)
--- NOTE | 2017-12-09 07:08 | PC.NURSE ---
SPOKE WITH DR. CHRISTINA AT THIS TIME R/T CRITICAL POTASSIUM OF 2.7 AND PATIENT HAVING BLOOD TINGED DIARRHEA. TO FOR PCR AND STOOL OCCULT BLOOD; CHANGE POTASSIUM 20 MEQ BID TO 40 MEQ BID AND GIVE PATIENT 20 MEQ POTASSIUM IV ONCE. WILL CONTINUE TO MONITOR.
[2017-12-09 07:57] LABS: Adenovirus F 40/41, stool Not Detected (NotDetected); Astrovirus Not Detected (NotDetected); Campylobacter Not Detected (NotDetected); Clostridium Difficile A/B, PCR Not Detected (NotDetected); Cryptosporidium Not Detected (NotDetected); Cyclospora Cayetanesis Not Detected (NotDetected); Entamoeba histolytica Not Detected (NotDetected); Enteroaggregative E coli Not Detected (NotDetected); Enteropathogenic E coli Not Detected (NotDetected); Enterotoxigenic E coli Not Detected (NotDetected); Giardia lamblia Not Detected (NotDetected); Norovirus Not Detected (NotDetected); Plesimonas Shigalloides, PCR Not Detected (NotDetected); Rotavirus A Not Detected (NotDetected); Salmonella, PCR Not Detected (NotDetected); Sapovirus Not Detected (NotDetected); Shiga-like toxin E coli Not Detected (NotDetected); Shigella Enterovasive E coli Not Detected (NotDetected); Vibrio Cholerae Not Detected (NotDetected); Vibrio, PCR Not Detected (NotDetected); Yersinia Entercolitica, PCR Not Detected (NotDetected)
--- NOTE | 2017-12-09 08:50 | HMH.ACPN2 ---
Internal Medicine - PN: Subj *Date: 12/09/17 *Time: 08:56 Interval history: Pt seen and examined. Not as alert but still responsive to questions. Staff reports loose stools and did vomit after potassium dose per G-tube. No respitory difficulty noted. Exam Vital signs and Labs for Last 24 Hours: Temp Pulse Resp BP Pulse Ox 97.9 F 68 20 109/56 96 12/09/17 08:00 12/09/17 08:00 12/09/17 08:00 12/09/17 08:00 12/09/17 08:00 Laboratory Results - last 24 hr 12/09/17 04:28: POC Glucose 130 12/09/17 05:55: Sodium 148 H, Potassium 2.7 L*, Chloride 112 H, Carbon Dioxide 25, Anion Gap 13.7, BUN 29 H, Creatinine 1.08 H, Estimated Creat Clear 57, Estimated GFR 49 L, Est GFR ( Amer) 60, Glucose 143 H I & O for Last 24 hours: Intake & Output 12/06/17 12/07/17 12/08/17 12/09/17 11:59 11:59 11:59 11:59 Intake Total 453 / 453 2586 / 2586 3417 / 3417 Output Total 2200 / 2200 1200 / 1200 950 / 950 1400 / 1400 Balance -1747 / -1747 1386 / 1386 2467 / 2467 -1400 / -1400 Weight 180 lb 7 oz 180 lb 7 oz Microbiology Reports for the Last 24 Hours: Microbiology 12/05/17 10:09 Blood Blood Culture - Preliminary NO GROWTH AFTER 72 HOURS 12/05/17 10:09 Blood Blood Culture - Preliminary NO GROWTH AFTER 72 HOURS Narrative: HIP AND KNEE XRAYS SHOWING OSTEOARTHRITIS; NO TRAUMA CXR SHOWED PERSISTENT BUT IMPROVING BIBASILAR INFILTRATES - Constitutional Comments: responsive, speech not as clear - *Routine Respiratory Exam Comments: BB rales - *Routine Abdominal Exam Present: soft Comments: slightly distended with mild diffuse tenderness - *Routine Extremities Exam Present: edema Assessment and Plan (1) Pneumonia Current visit: Yes Status: Acute Qualifiers: Pneumonia type: aspiration pneumonia Category: Medical Code(s): J18.9 - Pneumonia, unspecified organism (2) UTI (urinary tract infection) Current visit: Yes Status: Acute Category: Medical Code(s): N39.0 - Urinary tract infection, site not specified (3) Hypotension Current visit: Yes Status: Acute Category: Medical Code(s): I95.9 - Hypotension, unspecified (4) Anemia Current visit: Yes Status: Acute Category: Medical Code(s): D64.9 - Anemia, unspecified (5) CVA (cerebrovascular accident) Current visit: Yes Status: Chronic Category: Medical Code(s): I63.9 - Cerebral infarction, unspecified (6) HTN (hypertension) Current visit: Yes Status: Chronic Category: Medical Code(s): I10 - Essential (primary) hypertension (7) Diabetes mellitus Current visit: Yes Status: Chronic Category: Medical Code(s): E11.9 - Type 2 diabetes mellitus without complications (8) PEG (percutaneous endoscopic gastrostomy) status Current visit: Yes Status: Acute Category: Surgical Code(s): Z93.1 - Gastrostomy status (9) Dysphagia as late effect of cerebrovascular accident (CVA) Current visit: Yes Status: Acute Category: Medical Code(s): I69.391 - Dysphagia following cerebral infarction (10) Decubitus ulcers Current visit: Yes Status: Acute Category: Medical Code(s): L89.90 - Pressure ulcer of unspecified site, unspecified stage (11) Right hip pain Current visit: Yes Status: Acute Category: Medical Code(s): M25.551 - Pain in right hip (12) Right knee pain Current visit: Yes Status: Acute Category: Medical Code(s): M25.561 - Pain in right knee (13) Hypokalemia Current visit: Yes Status: Acute Category: Medical Code(s): E87.6 - Hypokalemia - Assessment and plan all Dx Assessment and Plan for all problems:: Stable overnight. Will continue to replace potassium; dose increased. Awaiting stool studies to r/o C. diff. Awaiting disposition.
--- NOTE | 2017-12-09 14:01 | PC.NURSE ---
Pt was given po Potassium and vomited after given, MD Garcia stated to given pt another IV potassium. Informed MD about pt G tube site having yellowish drainage around site. MD stated they would address this in the morning, pt is on antibiotics at this time. Will continue to monitor, zero residual from G tube at 0800 and 1200 check.
--- NOTE | 2017-12-09 15:48 | PC.NURSE ---
Residual checked at 10 ml were noted
--- NOTE | 2017-12-09 18:38 | PC.NURSE ---
Notified internal controls consultant Radha that pt only had 50 ml urine out this shift. Tube feeds going at 63 ml/hr of her goal rate. MD stated to give her a liter of Normal Saline and to run at 200 an hour. Will continue to monitor
[2017-12-09 20:08] LABS: POC Glucose,Bedside 143 mg/dL
[2017-12-09 20:08] LABS: POC Glucose,Bedside 216 mg/dL
[2017-12-09 20:08] LABS: POC Glucose,Bedside 125 mg/dL
[2017-12-09 22:39] LABS: POC Glucose,Bedside 239 mg/dL
[2017-12-10] VITALS (10 sets, daily range): BP systolic 101–141; BP diastolic 43–52; PULSE 66–80; RESP 20–24; TEMP 36.7; O2SAT 90–97
--- NOTE | 2017-12-10 04:00 | PC.NURSE ---
PATIENT HAS RESTED ON AND OFF THIS SHIFT. BUE REMAIN EDEMATOUS, WITH LUE BEING SLIGHTLY MORE SWOLLEN THAN THE RIGHT. PATIENT BEGAN MOANING AT ONE POINT LAST NIGHT AND WHEN ASKED IF SHE WAS HURTING, SHE STATED THAT HER LEFT ARM WAS HURTING. SHE WAS GIVEN PRN TYLENOL AT THAT TIME AND SLEPT SOUNDLY AFTERWARD. SHE CONTINUES TO GET GLUCERNA TUBE FEED PER PEG AT 63 ML/HR. ARGUETA CATHETER DRAINING KARY COLORED URINE WITH ONLY 100 ML TOTAL OUT SINCE BEGINNING OF SHIFT. NO OTHER PROBLEMS NOTED AT THIS TIME. VSS. WILL CONTINUE TO MONITOR. SAFETY MEASURES IN PLACE, CALL LIGHT IN REACH.
[2017-12-10 05:39] LABS: POC Glucose,Bedside 206 mg/dL
[2017-12-10 06:39] LABS: Basophils % 0.1 % (0.1-2.0); Eosinophils # 0.1 K/mm3 (0.0-0.4); Eosinophils % 0.6 % (0.1-12.0); Hematocrit 29.1 % (37.0-47.0); Hemoglobin 9.3 g/dL (12.2-16.2); Lymphocytes # 0.5 K/mm3 (0.7-4.5); Lymphocytes % 2.9 K/mm3 (10-50); Mean Corpuscular Hemoglobin 28.4 pg (27.0-31.2); Mean Corpuscular Volume 88.7 fl (81-99); Mean Platelet Volume 9.3 fl (7.4-10.4); Monocytes # 0.5 K/mm3 (0.1-1.0); Neutrophils # 16.2 K/mm3 (1.8-7.8); Neutrophils % 93.4 % (37.0-80.0); Platelet Count 220 K/mm3 (142-424); Red Blood Count 3.28 M/mm3 (4.20-5.40); Red Cell Distribution Width 16.9 % (11.5-17.5); White Blood Count 17.4 K/mm3 (4.8-10.8)
[2017-12-10 06:44] LABS: MANUAL DIFFERENTIAL MANUAL DIFFERENTIAL (MANUAL DIFF)
[2017-12-10 07:01] LABS: Alanine Aminotransferase 46 U/L (12-78); Albumin Level 1.1 gm/dL (3.4-5.0); Albumin/Globulin Ratio 0.3 (1.1-1.8); Alkaline Phosphatase 72 U/L (46-116); Anion Gap 14.8 mEq/L (5-15); Aspartate Amino Transferase 43 U/L (15-37); Bilirubin,Total 0.7 mg/dL (0.2-1.0); Blood Urea Nitrogen 40 mg/dL (7-18); Calcium 7.6 mg/dL (8.5-10.1); Carbon Dioxide 22 mmol/L (21.0-32.0); Chloride 112 mmol/L (98-107); Creatinine Clearance Estimated 41 mL/min (0-300); Estimated Glomerular Filt Rate 34 ml/min (>60); GFR (African American) 41 ML/MIN (>60); Globulin 3.6 gm/dl (1.3-3.2); Glucose 199 mg/dL (74-106); Sodium 146 mmol/L (136-145); Total Protein,Serum 4.7 gm/dL (6.4-8.2)
[2017-12-10 07:05] LABS: Potassium 2.8 mmoL/L (3.5-5.1)
[2017-12-10 07:37] LABS: Lymphocytes % 2 % (10-50); Monocytes % 2 % (2-9); Neutrophils % 91 % (42-76); Platelet Estimate Normal; RBC Morphology Normal; Total Cells Counted 100
[2017-12-10 09:12] LABS: POC Glucose,Bedside 153 mg/dL
[2017-12-10 09:12] LABS: POC Glucose,Bedside 184 mg/dL
[2017-12-10 09:12] LABS: POC Glucose,Bedside 159 mg/dL
[2017-12-10 09:12] LABS: POC Glucose,Bedside 187 mg/dL
--- NOTE | 2017-12-10 09:50 | HMH.ACPN2 ---
<ShyannLizbeth - Last Filed: 12/10/17 14:12> Internal Medicine - PN: Subj *Date: 12/10/17 *Time: 14:12 Interval history: patient is nonverbal this AM; per nursing: patient has had multiple stools of small amount; tolerated KCL per GT this AM; will have dietary check on pure water intake Exam Vital signs and Labs for Last 24 Hours: Temp Pulse Resp BP Pulse Ox 98.0 F 66 22 107/51 96 12/10/17 08:00 12/10/17 08:00 12/10/17 08:00 12/10/17 08:00 12/10/17 08:00 Laboratory Results - last 24 hr 12/07/17 11:03: POC Glucose 153 12/07/17 16:41: POC Glucose 187 12/08/17 12:02: POC Glucose 159 12/08/17 16:17: POC Glucose 184 12/08/17 22:12: POC Glucose 125 12/09/17 07:00: Stl Aeromonas (PCR) Not detected, Stl C. cayetanensis PCR Not detected, Stool Rotavirus (PCR) Not detected, Stl Adenov F 40/41 PCR Not detected, Stool Astrovirus (PCR) Not detected, Stool Cryptosporidium PCR Not detected, Stl E.coli Shiga Tox PCR Not detected, Stool E coli O157 PCR Not detected, Stl Enterotoxigenic E PCR Not detected, Stool EPEC (PCR) Not detected, Stool EAEC (PCR) Not detected, Stl E. histolytica PCR Not detected, Stool Giardia Lamblia PCR Not detected, Stool Sapovirus (PCR) Not detected, Stl P. shigelloides PCR Not detected, Stl Shigella/EIEC PCR Not detected, St Y.enterocolitica PCR Not detected, Stool Vibrio (PCR) Not detected, Stl Vibrio cholerae PCR Not detected, Stl Norovirus GI/GII PCR Not detected, Campylobacter (PCR) Not detected, C. difficile (PCR) Not detected, Salmonella (PCR) Not detected 12/09/17 11:35: POC Glucose 143 12/09/17 16:54: POC Glucose 216 12/09/17 22:23: POC Glucose 239 12/10/17 05:12: POC Glucose 206 12/10/17 06:20: WBC 17.4 H, RBC 3.28 L, Hgb 9.3 L, Hct 29.1 L, MCV 88.7, MCH 28.4, MCHC 32.0, RDW 16.9, Plt Count 220, MPV 9.3, Neut % (Auto) 93.4 H, Lymph % (Auto) 2.9 L, [place] % (Auto) 3.0, Eos % (Auto) 0.6, Baso % (Auto) 0.1, Neut # (Auto) 16.2 H, Lymph # (Auto) 0.5 L, [place] # (Auto) 0.5, Eos # (Auto) 0.1, Baso # (Auto) 0.0, Total Counted 100, Neutrophils % (Manual) 91 H, Band Neutrophils % 5.0, Lymphocytes % (Manual) 2 L, Monocytes % (Manual) 2, Platelet Estimate Normal, RBC Morphology Normal 12/10/17 06:20: Sodium 146 H, Potassium 2.8 L*, Chloride 112 H, Carbon Dioxide 22, Anion Gap 14.8, BUN 40 H D, Creatinine 1.50 H D, Estimated Creat Clear 41, Estimated GFR 34 L, Est GFR ( Amer) 41 L D, Glucose 199 H, Calcium 7.6 L, Total Bilirubin 0.7, AST 43 H, ALT 46, Alkaline Phosphatase 72, Total Protein 4.7 L, Albumin 1.1 L, Globulin 3.6 H, Albumin/Globulin Ratio 0.3 L I & O for Last 24 hours: Intake & Output 12/07/17 12/08/17 12/09/17 12/10/17 11:59 11:59 11:59 11:59 Intake Total 2586 / 2586 3417 / 3417 150 / 150 1424 / 1424 Output Total 1200 / 1200 950 / 950 1400 / 1400 200 / 200 Balance 1386 / 1386 2467 / 2467 -1250 / -1250 1224 / 1224 Weight 180 lb 7 oz Microbiology Reports for the Last 24 Hours: Microbiology 12/05/17 10:09 Blood Blood Culture - Preliminary NO GROWTH AFTER 4 DAYS 12/05/17 10:09 Blood Blood Culture - Preliminary NO GROWTH AFTER 4 DAYS - Constitutional no acute distress Comments: moans with turning - *Routine Respiratory Exam Absent: accessory muscle use Comments: crackles in upper lobes with decreased BS in bases - *Routine Cardiovascular Exam Present: RRR - *Routine Abdominal Exam Present: soft, normoactive bowel sounds. Absent: tenderness - *Routine Extremities Exam Absent: edema - *Routine Skin Exam Comments: excoriation around rectum and lower back Assessment and Plan (1) Pneumonia Current visit: Yes Status: Acute Qualifiers: Pneumonia type: aspiration pneumonia Category: Medical Code(s): J18.9 - Pneumonia, unspecified organism (2) UTI (urinary tract infection) Current visit: Yes Status: Acute Category: Medical Code(s): N39.0 - Urinary tract infection, site
--- NOTE | 2017-12-10 09:54 | P.PN_ITS ---
<ShyannLizbeth - Last Filed: 12/10/17 14:12> Internal Medicine - PN: Subj *Date: 12/10/17 *Time: 14:12 Interval history: patient is nonverbal this AM; per nursing: patient has had multiple stools of small amount; tolerated KCL per GT this AM; will have dietary check on pure water intake Exam Vital signs and Labs for Last 24 Hours: Temp Pulse Resp BP Pulse Ox 98.0 F 66 22 107/51 96 12/10/17 08:00 12/10/17 08:00 12/10/17 08:00 12/10/17 08:00 12/10/17 08:00 Laboratory Results - last 24 hr 12/07/17 11:03: POC Glucose 153 12/07/17 16:41: POC Glucose 187 12/08/17 12:02: POC Glucose 159 12/08/17 16:17: POC Glucose 184 12/08/17 22:12: POC Glucose 125 12/09/17 07:00: Stl Aeromonas (PCR) Not detected, Stl C. cayetanensis PCR Not detected, Stool Rotavirus (PCR) Not detected, Stl Adenov F 40/41 PCR Not detected, Stool Astrovirus (PCR) Not detected, Stool Cryptosporidium PCR Not detected, Stl E.coli Shiga Tox PCR Not detected, Stool E coli O157 PCR Not detected, Stl Enterotoxigenic E PCR Not detected, Stool EPEC (PCR) Not detected , Stool EAEC (PCR) Not detected, Stl E. histolytica PCR Not detected, Stool Giardia Lamblia PCR Not detected, Stool Sapovirus (PCR) Not detected, Stl P. shigelloides PCR Not detected, Stl Shigella/EIEC PCR Not detected, St Y.enterocolitica PCR Not detected, Stool Vibrio (PCR) Not detected, Stl Vibrio cholerae PCR Not detected, Stl Norovirus GI/GII PCR Not detected, Campylobacter (PCR) Not detected, C. difficile (PCR) Not detected, Salmonella (PCR) Not detected 12/09/17 11:35: POC Glucose 143 12/09/17 16:54: POC Glucose 216 12/09/17 22:23: POC Glucose 239 12/10/17 05:12: POC Glucose 206 12/10/17 06:20: WBC 17.4 H, RBC 3.28 L, Hgb 9.3 L, Hct 29.1 L, MCV 88.7, MCH 28.4, MCHC 32.0, RDW 16.9, Plt Count 220, MPV 9.3, Neut % (Auto) 93.4 H, Lymph % (Auto) 2.9 L, [place] % (Auto) 3.0, Eos % (Auto) 0.6, Baso % (Auto) 0.1, Neut # ( Auto) 16.2 H, Lymph # (Auto) 0.5 L, [place] # (Auto) 0.5, Eos # (Auto) 0.1, Baso # (Auto) 0.0, Total Counted 100, Neutrophils % (Manual) 91 H, Band Neutrophils % 5.0, Lymphocytes % (Manual) 2 L, Monocytes % (Manual) 2, Platelet Estimate Normal, RBC Morphology Normal 12/10/17 06:20: Sodium 146 H, Potassium 2.8 L*, Chloride 112 H, Carbon Dioxide 22, Anion Gap 14.8, BUN 40 H D, Creatinine 1.50 H D, Estimated Creat Clear 41, Estimated GFR 34 L, Est GFR ( Amer) 41 L D, Glucose 199 H, Calcium 7.6 L , Total Bilirubin 0.7, AST 43 H, ALT 46, Alkaline Phosphatase 72, Total Protein 4.7 L, Albumin 1.1 L, Globulin 3.6 H, Albumin/Globulin Ratio 0.3 L I & O for Last 24 hours: Intake & Output 12/07/17 12/08/17 12/09/17 12/10/17 11:59 11:59 11:59 11:59 Intake Total 2586 / 2586 3417 / 3417 150 / 150 1424 / 1424 Output Total 1200 / 1200 950 / 950 1400 / 1400 200 / 200 Balance 1386 / 1386 2467 / 2467 -1250 / -1250 1224 / 1224 Weight 180 lb 7 oz Microbiology Reports for the Last 24 Hours: Microbiology 12/05/17 10:09 Blood Blood Culture - Preliminary NO GROWTH AFTER 4 DAYS 12/05/17 10:09 Blood Blood Culture - Preliminary NO GROWTH AFTER 4 DAYS - Constitutional no acute distress Comments: moans with turning - *Routine Respiratory Exam Absent: accessory muscle use Comments: crackles in upper lobes with decreased BS in bases - *Routine Cardiovascular Exam Present: RRR - *Routine Abdominal Exam Present: soft, normoactive bowel sounds. Absent: tenderness
--- NOTE | 2017-12-10 11:04 | DIET.NUTRFU ---
Nursing reports frequent loose stools. Potassium remains low, albumin low at 1.1. She has been receiving Glucerna tube feeds which contains fiber. No additional fluids or free water at this time. Will change to Osmolite 1.0 low residue formula 60 ml/hr with supplements beneprotein one scoop tid to provide 1526 calories, 79 gm protein, 207 gm carbs and 1212 ml free water. Free water bolus 120 ml qid. Obtain new weight. Will monitor for tolerance. Pt may need additional insulin coverage for higher carbs.
[2017-12-10 12:09] LABS: POC Glucose,Bedside 137 mg/dL
--- NOTE | 2017-12-10 15:38 | SW/DCPLANNER ---
Addendum entered by Kamilla Adler 12/10/17 16:31: Maryuri from [facility] has stated that they can NOT meet this patients needs at this time. Original Note: Patient information has also been faxed to [facility], [facility] in [place], [facility], and [facility]. At this time Eric ([facility]), [facility], [facility], and [facility] in [place]. [facility] has also informed Corinne ([facility]) that they are currently holding this patients bed. Patients daughter is aware of situation. I will continue to follow up with facilities and patients family.
--- NOTE | 2017-12-10 16:02 | PC.NURSE ---
Spoke with Dr. Resendez related to patient having frequent liquid bowel movements and the change in her wound on her coccyx even with it being covered and the patient being turn every 2 hours. Dietary was consulted related to fluid needs and to see if a change in tube feeds would help with the diarrhea. New orders were submitted. Dr. Resendez requesting staff to get a new stool sample and no further orders from then. Wound was red this am and has now changed to have a deep tissue injury and blackened in the center of the open wound. Call placed to Shashank in PT related to wound dressing. awaiting return call at this time.
--- NOTE | 2017-12-10 16:30 | PC.NURSE ---
Spoke with Dr. Resendez requesting an order for bactroban to coccyx wound bid. OKay'ed per Dr. Resendez.
[2017-12-10 18:57] LABS: Adenovirus F 40/41, stool Not Detected (NotDetected); Astrovirus Not Detected (NotDetected); Campylobacter Not Detected (NotDetected); Clostridium Difficile A/B, PCR Not Detected (NotDetected); Cryptosporidium Not Detected (NotDetected); Cyclospora Cayetanesis Not Detected (NotDetected); Entamoeba histolytica Not Detected (NotDetected); Enteroaggregative E coli Not Detected (NotDetected); Enteropathogenic E coli Not Detected (NotDetected); Enterotoxigenic E coli Not Detected (NotDetected); Giardia lamblia Not Detected (NotDetected); Norovirus Not Detected (NotDetected); Plesimonas Shigalloides, PCR Not Detected (NotDetected); Rotavirus A Not Detected (NotDetected); Salmonella, PCR Not Detected (NotDetected); Sapovirus Not Detected (NotDetected); Shiga-like toxin E coli Not Detected (NotDetected); Shigella Enterovasive E coli Not Detected (NotDetected); Vibrio Cholerae Not Detected (NotDetected); Vibrio, PCR Not Detected (NotDetected); Yersinia Entercolitica, PCR Not Detected (NotDetected)
--- NOTE | 2017-12-10 18:59 | PC.NURSE ---
Treatment performed on wounds on coccyx. Betadine applied to deep tissue injury, then SSD cream applied to edges of wound and batroban applied to open areas. Covered with 2x2 gauze and secured with tegaderm. Patient tolerated this well.
--- NOTE | 2017-12-10 19:10 | PC.NURSE ---
PT FULL CODE, REPORT FROM [email or web address]
[2017-12-10 20:47] LABS: Vancomycin,Trough 32.7 mcg/ml (10.0-20.0)
--- NOTE | 2017-12-10 21:27 | PC.NURSE ---
RECEIVED CALL FROM PHARMACIST LI VILLALOBOS, PT'S VANCOMYCIN TROUGH RESULTS ELEVATED, INSTRUCTED TO HOLD 2100 DOSE.
[2017-12-11] VITALS (10 sets, daily range): BP systolic 110–162; BP diastolic 53–71; PULSE 70–80; RESP 18–24; TEMP 36.7–37.3; O2SAT 92–96
--- NOTE | 2017-12-11 04:49 | PC.NURSE ---
PT SLEPT INTERVALS. REQUIRED 2 COMPLETE BED CHANGES OF THIS TIME, R/T INCONTINENT BOWEL. PINK-TINGED/YELLOWISH BROWN MUCUS STOOL. PRECAUTIONS TAKEN, 1ST DIARRHEA PANEL NEGATIVE, 2ND ONE REPEATED YESTERDAY. NO RESULTS. NEW IV #22 LUP, SALINE LOCKED. PATENT, RECEIVING IV ABX. PT HAS SCATTERED BRUISING/ABRASIONS ON ALL EXTREMITIES. HAS WOUND ON HER BUTTOCK, CURRENTLY HAS BACTROBAN IN CENTER, THEN SILVADENE AROUND THAT AND BETADINE AROUND THAT AND OVERED WITH DSG. ALSO AREA BOTTOM RT FOOT/HEEL AREA. LAST NIGHT VANCOMYCIN DOSE HELD PER PHARMACY INSTRUCTIONS TROUGH WAS ELEVATED. PT STILL UNABLE TO PRODUCE SPUTUM SPECIMEN. NO COUGH NOTED. RHONCHI IN BASES. O2 2.5LNC. G-T SECURE AND PATENT. PT STABLE. WILL CONTINUE TO MONITOR. REPORT TO BE GIVEN TO ONCOMING NURSE.
[2017-12-11 06:09] LABS: POC Glucose,Bedside 241 mg/dL
[2017-12-11 06:09] LABS: POC Glucose,Bedside 216 mg/dL
[2017-12-11 06:09] LABS: POC Glucose,Bedside 169 mg/dL
[2017-12-11 07:02] LABS: Hematocrit 29.7 % (37.0-47.0); Hemoglobin 9.1 g/dL (12.2-16.2); Lymphocytes # 0.6 K/mm3 (0.7-4.5); Lymphocytes % 2.5 K/mm3 (10-50); Mean Corpuscular HGB Conc 30.6 g/dL (31.8-35.4); Mean Corpuscular Hemoglobin 27.5 pg (27.0-31.2); Mean Corpuscular Volume 89.9 fl (81-99); Mean Platelet Volume 9.8 fl (7.4-10.4); Monocytes # 0.4 K/mm3 (0.1-1.0); Neutrophils # 21.3 K/mm3 (1.8-7.8); Neutrophils % 95.4 % (37.0-80.0); Platelet Count 210 K/mm3 (142-424); White Blood Count 22.3 K/mm3 (4.8-10.8)
[2017-12-11 07:06] LABS: Anion Gap 18.1 mEq/L (5-15); Blood Urea Nitrogen 50 mg/dL (7-18); Carbon Dioxide 20 mmol/L (21.0-32.0); Chloride 112 mmol/L (98-107); Creatinine Clearance Estimated 36 mL/min (0-300); Creatinine,Serum 1.83 mg/dL (0.55-1.02); Estimated Glomerular Filt Rate 27 ml/min (>60); GFR (African American) 32 ML/MIN (>60); Glucose 253 mg/dL (74-106); Potassium 3.1 mmoL/L (3.5-5.1); Sodium 147 mmol/L (136-145)
[2017-12-11 07:23] LABS: MANUAL DIFFERENTIAL MANUAL DIFFERENTIAL (MANUAL DIFF)
--- NOTE | 2017-12-11 08:27 | CT_ITS ---
CT abdomen pelvis wo con CLINICAL INDICATION: ITS.REASON: Abdominal pain, leukocytosis ORDERING PHYSICIAN: Rishabh Resendez MD PATIENT AGE: 76 years COMPARISON: None TECHNIQUE: Axial images obtained with sagittal and coronal reformats. PROCEDURE: Oral Contrast: None IV Contrast: None . FINDINGS: Study is limited without IV and oral contrast for the bowel evaluation Lower thorax: There are small lateral pleural effusions. There is consolidation of the left lower lobe consistent with pneumonia with air bronchograms. Mitral valve annular calcifications are present and there is minimal thickening of the pericardium. Prior cholecystectomy without ductal dilatation. No focal liver lesions. There is a small amount of gas present in the left aspect of the biliary tree. Patient has had a prior cholecystectomy. The spleen, adrenal glands, and pancreas has an unremarkable unenhanced CT appearance. No renal calculi or hydronephrosis. Exophytic isodensity projects off the lower pole the left kidney at 2 cm and may represent a renal cyst. There is mild generalized ascites. A Jain catheter is present. A PEG tube is also present. There is generalized thickening of the entire colon with some minimal stranding of the pericolic fat consistent with colitis. This is most prominent in the ascending colon region and splenic flexure. Colonic wall thickening is greatest in the ascending colon area. No free air. Peripheral gas is noted in the splenic flexure area of the colon, proximal descending colon, and hepatic flexure suspicious for pneumatosis intestinalis. No free air. No portal venous gas. No evidence of small bowel obstruction. Jain catheter present. There is mild anasarca. No acute bony anomalies. IMPRESSION: 1. The findings are consistent with colitis with pneumatosis in the splenic flexure and proximal descending colon and possibly in the hepatic flexure. No free air or portal venous gas. 2. Prior cholecystectomy with minimal pneumobilia 3. Generalized ascites with anasarca and small bilateral effusions. 4. Left lower lobe pneumonia 5. The thickening in the ascending colon and hepatic flexure likely related to colitis. Neoplasm is an additional consideration.
--- NOTE | 2017-12-11 08:29 | HMH.ACPN2 ---
Internal Medicine - PN: Subj *Date: 12/11/17 *Time: 12:23 Interval history: Nursing notes reviewed. Had quiet night. Still with loose stools but not quite as frequent. Exam Vital signs and Labs for Last 24 Hours: Temp Pulse Resp BP Pulse Ox 99.1 F 77 18 124/68 94 L 12/11/17 04:00 12/11/17 06:01 12/11/17 04:00 12/11/17 04:00 12/11/17 06:01 Laboratory Results - last 24 hr 12/07/17 11:03: POC Glucose 153 12/07/17 16:41: POC Glucose 187 12/08/17 12:02: POC Glucose 159 12/08/17 16:17: POC Glucose 184 12/10/17 11:37: POC Glucose 137 12/10/17 16:46: POC Glucose 216 12/10/17 18:50: Stl Aeromonas (PCR) Not detected, Stl C. cayetanensis PCR Not detected, Stool Rotavirus (PCR) Not detected, Stl Adenov F 40/41 PCR Not detected, Stool Astrovirus (PCR) Not detected, Stool Cryptosporidium PCR Not detected, Stl E.coli Shiga Tox PCR Not detected, Stool E coli O157 PCR Not detected, Stl Enterotoxigenic E PCR Not detected, Stool EPEC (PCR) Not detected, Stool EAEC (PCR) Not detected, Stl E. histolytica PCR Not detected, Stool Giardia Lamblia PCR Not detected, Stool Sapovirus (PCR) Not detected, Stl P. shigelloides PCR Not detected, Stl Shigella/EIEC PCR Not detected, St Y.enterocolitica PCR Not detected, Stool Vibrio (PCR) Not detected, Stl Vibrio cholerae PCR Not detected, Stl Norovirus GI/GII PCR Not detected, Campylobacter (PCR) Not detected, C. difficile (PCR) Not detected, Salmonella (PCR) Not detected 12/10/17 20:17: Vancomycin Trough 32.7 H 12/10/17 22:27: POC Glucose 169 12/11/17 05:47: POC Glucose 241 12/11/17 06:20: WBC 22.3 H* D, RBC 3.30 L, Hgb 9.1 L, Hct 29.7 L, MCV 89.9, MCH 27.5, MCHC 30.6 L, RDW 17.0, Plt Count 210, MPV 9.8, Neut % (Auto) 95.4 H, Lymph % (Auto) 2.5 L, [place] % (Auto) 2.0, Eos % (Auto) 0.0 L, Baso % (Auto) 0.0 L, Neut # (Auto) 21.3 H, Lymph # (Auto) 0.6 L, [place] # (Auto) 0.4, Eos # (Auto) 0.0, Baso # (Auto) 0.0 12/11/17 06:20: Sodium 147 H, Potassium 3.1 L, Chloride 112 H, Carbon Dioxide 20 L, Anion Gap 18.1 H, BUN 50 H, Creatinine 1.83 H D, Estimated Creat Clear 36, Estimated GFR 27 L, Est GFR ( Amer) 32 L D, Glucose 253 H D I & O for Last 24 hours: Intake & Output 12/08/17 12/09/17 12/10/17 12/11/17 11:59 11:59 11:59 11:59 Intake Total 3417 / 3417 150 / 150 1574 / 1574 1829 / 1829 Output Total 950 / 950 1400 / 1400 200 / 200 220 / 220 Balance 2467 / 2467 -1250 / -1250 1374 / 1374 1609 / 1609 Weight 180 lb 7 oz 191 lb 1 oz Microbiology Reports for the Last 24 Hours: Microbiology 12/05/17 10:09 Blood Blood Culture - Final NO GROWTH AFTER 5 DAYS 12/05/17 10:09 Blood Blood Culture - Final NO GROWTH AFTER 5 DAYS - Constitutional Comments: arouses easily and responds to questions slowly but appropriately - *Routine Respiratory Exam Comments: diminished in bases, no rales or wheezes anteriorly - *Routine Abdominal Exam Comments: slightly distended and diffusely tender but less so than yesterday. - *Routine Extremities Exam Absent: edema Assessment and Plan (1) Pneumonia Current visit: Yes Status: Acute Qualifiers: Pneumonia type: aspiration pneumonia Category: Medical Code(s): J18.9 - Pneumonia, unspecified organism (2) UTI (urinary tract infection) Current visit: Yes Status: Acute Category: Medical Code(s): N39.0 - Urinary tract infection, site not specified (3) Hypotension Current visit: Yes Status: Acute Category: Medical Code(s): I95.9 - Hypotension, unspecified (4) Anemia Current visit: Yes Status: Acute Category: Medical Code(s): D64.9 - Anemia, unspecified (5) CVA (cerebrovascular accident) Current visit: Yes Status: Chronic Category: Medical Code(s): I63.9 - Cerebral infarction, unspecified (6) HTN (hypertension) Current visit: Yes Status: Chronic Category: Medical Code(s): I10 - Essential (primary) hypertension (7) D
--- NOTE | 2017-12-11 08:34 | P.PN_ITS ---
Internal Medicine - PN: Subj *Date: 12/11/17 *Time: 12:23 Interval history: Nursing notes reviewed. Had quiet night. Still with loose stools but not quite as frequent. Exam Vital signs and Labs for Last 24 Hours: Temp Pulse Resp BP Pulse Ox 99.1 F 77 18 124/68 94 L 12/11/17 04:00 12/11/17 06:01 12/11/17 04:00 12/11/17 04:00 12/11/17 06:01 Laboratory Results - last 24 hr 12/07/17 11:03: POC Glucose 153 12/07/17 16:41: POC Glucose 187 12/08/17 12:02: POC Glucose 159 12/08/17 16:17: POC Glucose 184 12/10/17 11:37: POC Glucose 137 12/10/17 16:46: POC Glucose 216 12/10/17 18:50: Stl Aeromonas (PCR) Not detected, Stl C. cayetanensis PCR Not detected, Stool Rotavirus (PCR) Not detected, Stl Adenov F 40/41 PCR Not detected, Stool Astrovirus (PCR) Not detected, Stool Cryptosporidium PCR Not detected, Stl E.coli Shiga Tox PCR Not detected, Stool E coli O157 PCR Not detected, Stl Enterotoxigenic E PCR Not detected, Stool EPEC (PCR) Not detected , Stool EAEC (PCR) Not detected, Stl E. histolytica PCR Not detected, Stool Giardia Lamblia PCR Not detected, Stool Sapovirus (PCR) Not detected, Stl P. shigelloides PCR Not detected, Stl Shigella/EIEC PCR Not detected, St Y.enterocolitica PCR Not detected, Stool Vibrio (PCR) Not detected, Stl Vibrio cholerae PCR Not detected, Stl Norovirus GI/GII PCR Not detected, Campylobacter (PCR) Not detected, C. difficile (PCR) Not detected, Salmonella (PCR) Not detected 12/10/17 20:17: Vancomycin Trough 32.7 H 12/10/17 22:27: POC Glucose 169 12/11/17 05:47: POC Glucose 241 12/11/17 06:20: WBC 22.3 H* D, RBC 3.30 L, Hgb 9.1 L, Hct 29.7 L, MCV 89.9, MCH 27.5, MCHC 30.6 L, RDW 17.0, Plt Count 210, MPV 9.8, Neut % (Auto) 95.4 H, Lymph % (Auto) 2.5 L, [place] % (Auto) 2.0, Eos % (Auto) 0.0 L, Baso % (Auto) 0.0 L , Neut # (Auto) 21.3 H, Lymph # (Auto) 0.6 L, [place] # (Auto) 0.4, Eos # (Auto) 0.0, Baso # (Auto) 0.0 12/11/17 06:20: Sodium 147 H, Potassium 3.1 L, Chloride 112 H, Carbon Dioxide 20 L, Anion Gap 18.1 H, BUN 50 H, Creatinine 1.83 H D, Estimated Creat Clear 36 , Estimated GFR 27 L, Est GFR ( Amer) 32 L D, Glucose 253 H D I & O for Last 24 hours: Intake & Output 12/08/17 12/09/17 12/10/17 12/11/17 11:59 11:59 11:59 11:59 Intake Total 3417 / 3417 150 / 150 1574 / 1574 1829 / 1829 Output Total 950 / 950 1400 / 1400 200 / 200 220 / 220 Balance 2467 / 2467 -1250 / -1250 1374 / 1374 1609 / 1609 Weight 180 lb 7 oz 191 lb 1 oz Microbiology Reports for the Last 24 Hours: Microbiology 12/05/17 10:09 Blood Blood Culture - Final NO GROWTH AFTER 5 DAYS 12/05/17 10:09 Blood Blood Culture - Final NO GROWTH AFTER 5 DAYS - Constitutional Comments: arouses easily and responds to questions slowly but appropriately - *Routine Respiratory Exam Comments: diminished in bases, no rales or wheezes anteriorly - *Routine Abdominal Exam Comments: slightly distended and diffusely tender but less so than yesterday. - *Routine Extremities Exam Absent: edema Assessment and Plan (1) Pneumonia Current visit: Yes Status: Acute Qualifiers: Pneumonia type: aspiration pneumonia Category: Medical Code(s): J18.9 - Pneumonia, unspecified organism (2) UTI (urinary tract infection) Current visit: Yes Status: Acute Category: Medical Code(s): N39.0 - Urinary tract infection, site not specified (3) Hypotension Current visit:
--- NOTE | 2017-12-11 09:53 | SW/DCPLANNER ---
Made a phone call to the daughter whom is the responsible alliance party for this patient and informed her that our office ([facility]) had been working to obtain another bed for her mother without any luck.. several facilities are currently not admitting r/t illnesses and I recommend that she go back to her bed at [facility] and we will coordinate with the fitness and wellness coordinator there and give her names and phone numbers of places that could possibly accept her mother when illnesses clear up... daughter was in agreement of the plan. I also told her that Dr Resendez is doing more tests and her mother is not ready for a disposition at this time... CM will continue to follow and assist as indicated...
[2017-12-11 09:56] LABS: Lymphocytes % 2 % (10-50); Monocytes % 2 % (2-9); Neutrophils % 91 % (42-76); Total Cells Counted 100
[2017-12-11 09:57] LABS: Platelet Estimate Normal
--- NOTE | 2017-12-11 10:40 | PC.NURSE ---
PATIENT NOW DOWN FOR RADIOLOGY SCAN ON HER ABD. AT THIS TIME.
--- NOTE | 2017-12-11 10:50 | PC.NURSE ---
PATIENT NOW BACK IN ROOM FROM HER SCAN OF ABD.
[2017-12-11 12:27] LABS: POC Glucose,Bedside 222 mg/dL
--- NOTE | 2017-12-11 14:32 | PC.NURSE ---
CALLED DR. MATTHEW NURSE AND LET HIM KNOW THAT PATIENTS CT OF ABD. AND PELVIS RESULTS ARE UP AND IN THE COMPUTER SO HE CAN READ THESE. THERE WAS SOME CHANGES NOTED.
--- NOTE | 2017-12-11 14:41 | PC.NURSE ---
CALLED BACK IN RESPONSE TO THE PATIENTS CT OF ABDOMEN RESULTS AND WOULD LIKE FOR Marine CLEMENT TO CONSULT WITH THE PATIENT WELL.
--- NOTE | 2017-12-11 14:43 | PC.NURSE ---
CALLED Linda BOWDEN OFFICE AND SPOKE TO HIS NURSE AUGUST AND SHE SAID THAT SHE WOULD TEXT HIM AND LET HIM KNOW THAT HE IS TO CONSULT WITH THE PATIENT IN ROOM 213
--- NOTE | 2017-12-11 15:52 | HMH.GSCON ---
*Admission Date: 12/05/17 *Chief complaint: Abdominal tenderness *History of present illness: Patient is a 76-year-old white female with diabetes and hypertension who had experienced multiple recent cerebrovascular accidents with residual effect and had essentially been hospitalized in [place] with alternating stays between [facility] and [facility]. She had apparent rehospitalization at [facility] for extension of stroke and also rehospitalization for anemia at which time she underwent upper endoscopy which revealed gastritis. She did ultimately have percutaneous endoscopic gastrostomy tube placed and was [facility] in [facility] approximately 2 weeks prior to admission here. Patient had reportedly developed hypoxia, fevers, and altered mental status and was taken by EMS to [facility] on 12/05/17. Apparently at that time it was felt that she required a critical care bed and there were reportedly no critical care beds available within the region of the [facility]. Ultimately she was admitted at this institution for critical care management due to widespread lack of critical care bed availability. This was on 12/05/17. At that time surgery was consulted to evaluate anemia. She was transfused and had good response. Her gastrostomy tube was aspirated and there was no evidence of any gross blood but merely normal gastric contents. Given the patient's acute issue, recent gastrostomy tube placement, recent endoscopy findings all at [facility] it was felt that risk would greatly outweigh the benefit for upper endoscopy. She has been treated subsequently during this hospitalization for urinary tract infection as well as acute pneumonia. She has been on vancomycin, Zosyn, and levofloxacin. She had been convalescing but then over the past 24 hours or so had developed some altered mental status characterized by decreased alertness. She had diarrhea and had a diarrhea panel sent which was negative for any infectious etiology. She was noted to have a progressive leukocytosis this morning with some apparent abdominal tenderness. She underwent noncontrast CT scan which reveals findings consistent with colitis with diffuse thickening of the colon and evidence of findings consistent with pneumatosis intestinalis at the region of the splenic flexure. Surgical consultation was obtained. Review of Systems - Review of Systems Review of systems:: unable to obtain - *Neurologic Reports abnormal speech [facility] History Medical History: Reports:: Cerebrovascular Accident, Diabetes Mellitus Type 2, Gastroesophageal Reflux Disease(GERD), Gastrointestinal Bleed, Hypertension, Urinary Tract Infection Denies:: Cancer, Diabetes Mellitus Type 1, MRSA Other Medical History: Reports: Anemia Amputation: No - *Social History Smoking Status: Unknown if ever smoked Alcohol Intake: never Occupational Status: retired, disabled Housing: prison - Psychiatric History Expresses thoughts of harming self/others: None Suicide Plan Description: No Plan *Family Hx:: Unable to obtain Meds Home Medications Medication Instructions Recorded Confirmed Type Apixaban [Eliquis] 5 mg NG-TUBE BID 12/05/17 12/05/17 History Ascorbic Acid [Vitamin C] 500 mg NG-TUBE DAILY 12/05/17 12/07/17 History Aspirin [Aspirin 81mg EC Tab] 81 mg NG-TUBE DAILY 12/05/17 12/05/17 History Citalopram Hydrobromide [Celexa 20 mg NG-TUBE DAILY 12/05/17 12/05/17 History 20mg Tablet] Diclofenac Sodium [Diclofenac Sod 2 gm TP QID 12/05/17 12/05/17 History 100gm Topical Gel] Ferrous Sulfate [Ferrous Sulfate 300 mg NG-TUBE DAILY 12/05/17 12/05/17 History 300mg/5mL Udc] Hydralazine HCl 50 mg NG-TUBE Q8H 12/05/17 12/05/17 History Labetalol HCl [Normodyne 200mg 200 mg NG-TUBE Q8H 12/05/17 12/05/17 History tablet] Methylphenidate HCl [Ritalin] 10 mg NG-TUBE DAILY 12/05/17 12/05/17 Histo
--- NOTE | 2017-12-11 16:01 | P.CONS_ITS ---
*Admission Date: 12/05/17 *Chief complaint: Abdominal tenderness *History of present illness: Patient is a 76-year-old white female with diabetes and hypertension who had experienced multiple recent cerebrovascular accidents with residual effect and had essentially been hospitalized in [place] with alternating stays between [facility] and [facility]. She had apparent rehospitalization at [facility] for extension of stroke and also rehospitalization for anemia at which time she underwent upper endoscopy which revealed gastritis. She did ultimately have percutaneous endoscopic gastrostomy tube placed and was discharged to a [facility] facility in [facility] approximately 2 weeks prior to admission here. Patient had reportedly developed hypoxia, fevers, and altered mental status and was taken by EMS to [facility] on 12/05/17. Apparently at that time it was felt that she required a critical care bed and there were reportedly no critical care beds available within the region of the [facility]. Ultimately she was admitted at this institution for critical care management due to widespread lack of critical care bed availability. This was on 12/05/17. At that time surgery was consulted to evaluate anemia. She was transfused and had good response. Her gastrostomy tube was aspirated and there was no evidence of any gross blood but merely normal gastric contents. Given the patient's acute issue , recent gastrostomy tube placement, recent endoscopy findings all at [facility] it was felt that risk would greatly outweigh the benefit for upper endoscopy. She has been treated subsequently during this hospitalization for urinary tract infection as well as acute pneumonia. She has been on vancomycin, Zosyn, and levofloxacin. She had been convalescing but then over the past 24 hours or so had developed some altered mental status characterized by decreased alertness. She had diarrhea and had a diarrhea panel sent which was negative for any infectious etiology. She was noted to have a progressive leukocytosis this morning with some apparent abdominal tenderness. She underwent noncontrast CT scan which reveals findings consistent with colitis with diffuse thickening of the colon and evidence of findings consistent with pneumatosis intestinalis at the region of the splenic flexure. Surgical consultation was obtained. Review of Systems - Review of Systems Review of systems:: unable to obtain - *Neurologic Reports abnormal speech [facility] History Medical History: Reports:: Cerebrovascular Accident, Diabetes Mellitus Type 2, Gastroesophageal Reflux Disease(GERD), Gastrointestinal Bleed, Hypertension, Urinary Tract Infection Denies:: Cancer, Diabetes Mellitus Type 1, MRSA Other Medical History: Reports: Anemia Amputation: No - *Social History Smoking Status: Unknown if ever smoked Alcohol Intake: never Occupational Status: retired, disabled Housing: intermediate - Psychiatric History Expresses thoughts of harming self/others: None Suicide Plan Description: No Plan *Family Hx:: Unable to obtain Meds Home Medications Medication Instructions Recorded Confirmed Type Apixaban [Eliquis] 5 mg NG-TUBE BID 12/05/17 12/05/17 History Ascorbic Acid [Vitamin C] 500 mg NG-TUBE DAILY 12/05/17 12/07/17 History Aspirin [Aspirin 81mg EC Tab] 81 mg NG-TUBE DAILY 12/05/17 12/05/17 History Citalopram Hydrobromide [Celexa 20 mg NG-TUBE DAILY 12/05/17 12/05/17 History 20mg Tablet] Diclofenac Sodium [Diclofenac Sod 2 gm TP QID 12/05/17 12/05/17 History 100gm Topical Gel]
[2017-12-11 16:07] LABS: Lactic Acid 1.4 mmol/L (0.4-2.0)
--- NOTE | 2017-12-11 16:11 | PC.NURSE ---
Dark yellow, cloudy urine
--- NOTE | 2017-12-11 16:25 | PC.NURSE ---
DR. AVENDAÑO CALLED AND WANTED PATIENTS TUBE FEEDINGS TO BE ON HOLD FOR NOW AND TO START NS AT 100ML/HR.
--- NOTE | 2017-12-11 16:33 | PC.NURSE ---
BENEPROTEIN PROTEIN POWDER GIVEN IN 180ML WATER PER G-TUBE, PATIENT TOLERATED WELL.
[2017-12-11 17:29] LABS: POC Glucose,Bedside 258 mg/dL
--- NOTE | 2017-12-11 18:30 | PC.NURSE ---
PATIENT HAS HAD HER TUB FEEDINGS TO BE HELD AT THIS TIME, NS AT 100 TO BE STARTED UP PER DR. AVENDAÑO. PATIENT STILL HAS HAD SEVERAL LOOSE, WATERY STOOLS TODAY. BOTTOM IS RED AND COCCYX HAS A STAGE 2 ON IT. SILVADINE CREAM AND MUPIROCIN CREAM APPLIED TO HER BOTTOM.
[2017-12-11 22:32] LABS: POC Glucose,Bedside 99 mg/dL
[2017-12-12] VITALS (12 sets, daily range): BP systolic 88–149; BP diastolic 38–88; PULSE 60–89; RESP 18–24; TEMP 36.3–37.5; O2SAT 87–97
--- NOTE | 2017-12-12 04:30 | PC.NURSE ---
Addendum entered by Kat Robbins RN 12/12/17 04:54: Breakdown to heels noted, pt unable to tolerated TEDs. Original Note: Pt denied pain this shift. Pt has had multiple episodes of watery diarrhea. Upon 2100 round and medications pass residual checked, 35 mL of yellow gastric content removed and put back in tube, tube placement verified with auscultation of air injected to tube and aspiration of gastric contents. Medication administered via g tube w/o difficulty, 180 mL of free water given with beneprotein per MD order. Pt is not alert this shift, respond to verbal stimuli but is unable to state name, , place, etc. 2+ BUE pitting edema and 1+ BLE edema noted. Flaccid to left side, pt baseline. PERRLA present. Murmur noted during auscultation of heart sounds. Rhonchi noted during lung auscultation. BS active in all 4 qauds, abdomen is mildly distended and firm to BUQ, no s/s of pain upon palpation. Tolerating 2L NC well. F/C patent, dark cloudy urine noted. Breakdown to buttocks noted, medicated cream applied for order. Pt being turned Q2H. VSS. Pt constantly moaning when awake but is unable to state needs, when asked if she is in pain she shakes her head no. HOB remains 30-45 degrees. Will continue to monitor. Upon round aprox. 0345 pt FSBS assessed, resulted 53, 120 mL of OJ given via g tube. 5 mL of gastric contents aspirated prior to administration of OJ to confirm placement and check residual. Aprox. 0420 FSBS assessed again of a result of 73, 100 additional mL of OJ given. @ 0445 pt FSBS 85. Will continue to monitor.
--- NOTE | 2017-12-12 05:48 | PC.NURSE ---
1464ML CLEARED FROM PUMP THIS SHIFT.
--- NOTE | 2017-12-12 06:06 | PC.NURSE ---
nurse notified of pts wtr difference
--- NOTE | 2017-12-12 06:45 | PC.NURSE ---
Family member (daughter) called this nurse to check on her mother. Verified password with patient family member that we have on file and daughter gave correct password. Daughter notified of pt condition and deterioration. Pt daughter very concerned over phone and stated she would be visiting her mother in the next couple hours. This nurse addressed code status, pt daughter stated I just cant make that decision right now. Pt remains full code until addressed and revised at this time.
--- NOTE | 2017-12-12 07:05 | HMH.GSPN ---
Subjective Narrative: Patient moaning. Exam Vital signs and Labs for Last 24 Hours: Temp Pulse Resp BP Pulse Ox 98.4 F 62 24 142/54 91 L 12/12/17 04:00 12/12/17 06:10 12/12/17 04:00 12/12/17 04:00 12/12/17 06:10 Laboratory Results - last 24 hr 12/11/17 06:20: WBC 22.3 H* D, RBC 3.30 L, Hgb 9.1 L, Hct 29.7 L, MCV 89.9, MCH 27.5, MCHC 30.6 L, RDW 17.0, Plt Count 210, MPV 9.8, Neut % (Auto) 95.4 H, Lymph % (Auto) 2.5 L, [place] % (Auto) 2.0, Eos % (Auto) 0.0 L, Baso % (Auto) 0.0 L, Neut # (Auto) 21.3 H, Lymph # (Auto) 0.6 L, [place] # (Auto) 0.4, Eos # (Auto) 0.0, Baso # (Auto) 0.0, Total Counted 100, Neutrophils % (Manual) 91 H, Band Neutrophils % 5.0, Lymphocytes % (Manual) 2 L, Monocytes % (Manual) 2, Platelet Estimate Normal 12/11/17 06:20: Sodium 147 H, Potassium 3.1 L, Chloride 112 H, Carbon Dioxide 20 L, Anion Gap 18.1 H, BUN 50 H, Creatinine 1.83 H D, Estimated Creat Clear 36, Estimated GFR 27 L, Est GFR ( Amer) 32 L D, Glucose 253 H D 12/11/17 11:47: POC Glucose 222 12/11/17 15:40: Lactic Acid 1.4 12/11/17 17:04: POC Glucose 258 12/11/17 21:29: POC Glucose 99 I & O for Last 24 hours: Intake & Output 12/09/17 12/10/17 12/11/17 12/12/17 11:59 11:59 11:59 11:59 Intake Total 150 / 150 1574 / 1574 1978 / 1978 1791 / 1791 Output Total 1400 / 1400 200 / 200 520 / 520 550 / 550 Balance -1250 / -1250 1374 / 1374 1459 / 1459 1241 / 1241 Weight 187 lb 9 oz 198 lb 4 oz - *Routine Abdominal Exam Present: tenderness, distended Comments: Abdomen is distended. She has diffusely with some voluntary guarding in the right upper and lower quadrant and some tenderness without guarding or rebound in the left upper quadrant. Progress Note: A&P (1) Pneumonia Status: Acute Current Visit: Yes (2) UTI (urinary tract infection) Status: Acute Current Visit: Yes (3) Hypotension Status: Acute Current Visit: Yes (4) Anemia Status: Acute Current Visit: Yes (5) CVA (cerebrovascular accident) Status: Chronic Current Visit: Yes (6) HTN (hypertension) Status: Chronic Current Visit: Yes (7) Diabetes mellitus Status: Chronic Current Visit: Yes (8) PEG (percutaneous endoscopic gastrostomy) status Status: Acute Current Visit: Yes (9) Dysphagia as late effect of cerebrovascular accident (CVA) Status: Acute Current Visit: Yes (10) Decubitus ulcers Status: Acute Current Visit: Yes (11) Right hip pain Status: Acute Current Visit: Yes (12) Right knee pain Status: Acute Current Visit: Yes (13) Hypokalemia Status: Acute Current Visit: Yes (14) Excoriation of buttock Status: Acute Current Visit: Yes (15) Renal insufficiency Status: Acute Current Visit: Yes (16) Abdominal pain Status: Acute Assessment and plan: Patient likely has ischemic colitis which is appreciably severe. Prognosis is grim. Once again, recommend transfer to tertiary facility unless supportive and comfort measures are the maximum of the patient's planned care. Current Visit: Yes
--- NOTE | 2017-12-12 07:08 | P.PN_ITS ---
Subjective Narrative: Patient moaning. Exam Vital signs and Labs for Last 24 Hours: Temp Pulse Resp BP Pulse Ox 98.4 F 62 24 142/54 91 L 12/12/17 04:00 12/12/17 06:10 12/12/17 04:00 12/12/17 04:00 12/12/17 06:10 Laboratory Results - last 24 hr 12/11/17 06:20: WBC 22.3 H* D, RBC 3.30 L, Hgb 9.1 L, Hct 29.7 L, MCV 89.9, MCH 27.5, MCHC 30.6 L, RDW 17.0, Plt Count 210, MPV 9.8, Neut % (Auto) 95.4 H, Lymph % (Auto) 2.5 L, [place] % (Auto) 2.0, Eos % (Auto) 0.0 L, Baso % (Auto) 0.0 L , Neut # (Auto) 21.3 H, Lymph # (Auto) 0.6 L, [place] # (Auto) 0.4, Eos # (Auto) 0.0, Baso # (Auto) 0.0, Total Counted 100, Neutrophils % (Manual) 91 H, Band Neutrophils % 5.0, Lymphocytes % (Manual) 2 L, Monocytes % (Manual) 2, Platelet Estimate Normal 12/11/17 06:20: Sodium 147 H, Potassium 3.1 L, Chloride 112 H, Carbon Dioxide 20 L, Anion Gap 18.1 H, BUN 50 H, Creatinine 1.83 H D, Estimated Creat Clear 36 , Estimated GFR 27 L, Est GFR ( Amer) 32 L D, Glucose 253 H D 12/11/17 11:47: POC Glucose 222 12/11/17 15:40: Lactic Acid 1.4 12/11/17 17:04: POC Glucose 258 12/11/17 21:29: POC Glucose 99 I & O for Last 24 hours: Intake & Output 12/09/17 12/10/17 12/11/17 12/12/17 11:59 11:59 11:59 11:59 Intake Total 150 / 150 1574 / 1574 1978 / 1978 1791 / 1791 Output Total 1400 / 1400 200 / 200 520 / 520 550 / 550 Balance -1250 / -1250 1374 / 1374 1459 / 1459 1241 / 1241 Weight 187 lb 9 oz 198 lb 4 oz - *Routine Abdominal Exam Present: tenderness, distended Comments: Abdomen is distended. She has diffusely with some voluntary guarding in the right upper and lower quadrant and some tenderness without guarding or rebound in the left upper quadrant. Progress Note: A&P (1) Pneumonia Status: Acute Current Visit: Yes (2) UTI (urinary tract infection) Status: Acute Current Visit: Yes (3) Hypotension Status: Acute Current Visit: Yes (4) Anemia Status: Acute Current Visit: Yes (5) CVA (cerebrovascular accident) Status: Chronic Current Visit: Yes (6) HTN (hypertension) Status: Chronic Current Visit: Yes (7) Diabetes mellitus Status: Chronic Current Visit: Yes (8) PEG (percutaneous endoscopic gastrostomy) status Status: Acute Current Visit: Yes (9) Dysphagia as late effect of cerebrovascular accident (CVA) Status: Acute Current Visit: Yes (10) Decubitus ulcers Status: Acute Current Visit: Yes (11) Right hip pain Status: Acute Current Visit: Yes (12) Right knee pain Status: Acute Current Visit: Yes (13) Hypokalemia Status: Acute Current Visit: Yes (14) Excoriation of buttock Status: Acute Current Visit: Yes (15) Renal insufficiency Status: Acute Current Visit: Yes (16) Abdominal pain Status: Acute Assessment and plan: Patient likely has ischemic colitis which is appreciably severe. Prognosis is grim. Once again, recommend transfer to tertiary facility unless supportive and comfort measures are the maximum of the patient's planned care. Current Visit: Yes
[2017-12-12 07:34] LABS: POC Glucose,Bedside 54 mg/dL
[2017-12-12 07:34] LABS: POC Glucose,Bedside 73 mg/dL
[2017-12-12 07:34] LABS: POC Glucose,Bedside 85 mg/dL
--- NOTE | 2017-12-12 07:42 | PC.NURSE ---
HANDOFF REPORT GIVEN TO WAGNER RODRIGUEZ.
[2017-12-12 08:04] LABS: Hematocrit 27.4 % (37.0-47.0); Hemoglobin 8.5 g/dL (12.2-16.2); Lymphocytes # 0.7 K/mm3 (0.7-4.5); Lymphocytes % 3.6 K/mm3 (10-50); Mean Corpuscular HGB Conc 31.1 g/dL (31.8-35.4); Mean Corpuscular Hemoglobin 27.6 pg (27.0-31.2); Mean Corpuscular Volume 88.9 fl (81-99); Mean Platelet Volume 10.6 fl (7.4-10.4); Monocytes # 0.5 K/mm3 (0.1-1.0); Monocytes % 2.5 % (1.7-9.3); Neutrophils # 17.3 K/mm3 (1.8-7.8); Neutrophils % 93.9 % (37.0-80.0); Platelet Count 191 K/mm3 (142-424); Red Blood Count 3.08 M/mm3 (4.20-5.40); Red Cell Distribution Width 17.2 % (11.5-17.5); White Blood Count 18.5 K/mm3 (4.8-10.8)
[2017-12-12 08:07] LABS: Anion Gap 16.7 mEq/L (5-15); Blood Urea Nitrogen 58 mg/dL (7-18); Carbon Dioxide 18 mmol/L (21.0-32.0); Chloride 116 mmol/L (98-107); Creatinine Clearance Estimated 34 mL/min (0-300); Estimated Glomerular Filt Rate 24 ml/min (>60); GFR (African American) 29 ML/MIN (>60); Glucose 89 mg/dL (74-106); Potassium 3.7 mmoL/L (3.5-5.1); Sodium 147 mmol/L (136-145)
[2017-12-12 08:13] LABS: MANUAL DIFFERENTIAL MANUAL DIFFERENTIAL (MANUAL DIFF)
--- NOTE | 2017-12-12 08:13 | PC.NURSE ---
DR. AVENDAÑO INTO ROUND ON THE PATIENT, HE ORDERED TO HOLD HER BENEPROTEIN POWDER FOR NOW TO ALLOW FOR COMPLETE BOWEL REST. IVF'S ARE GOING AT NS @ 100ML/HR AT THIS TIME, PATIENT TOLERATING THIS WELL.
--- NOTE | 2017-12-12 08:15 | PC.NURSE ---
CHECKED RESIDUAL ON G- TUBE AND WAS LESS 1-2 ML OF TUBE FEEDING. FLUSHED WITH 20 ML OF WATER.
[2017-12-12 08:34] LABS: Lymphocytes % 4 % (10-50); Monocytes % 3 % (2-9); Neutrophils % 90 % (42-76); Total Cells Counted 100
[2017-12-12 08:35] LABS: Platelet Estimate Normal
--- NOTE | 2017-12-12 08:36 | HMH.ACPN2 ---
<Sara Worley - Last Filed: 12/12/17 08:36> Internal Medicine - PN: Subj *Date: 12/12/17 *Time: 08:36 Interval history: Patient is not feeling well today. According to nursing staff she did not respond through the night, however this morning she does open her eyes and can answer yes or no when presented with questions. She does continue to moan. When palpated, she says her legs are tender and her abdomen is tender. Exam Vital signs and Labs for Last 24 Hours: Temp Pulse Resp BP Pulse Ox 97.6 F 66 20 149/88 94 L 12/12/17 07:41 12/12/17 07:41 12/12/17 07:41 12/12/17 07:41 12/12/17 07:41 Laboratory Results - last 24 hr 12/11/17 06:20: Total Counted 100, Neutrophils % (Manual) 91 H, Band Neutrophils % 5.0, Lymphocytes % (Manual) 2 L, Monocytes % (Manual) 2, Platelet Estimate Normal 12/11/17 11:47: POC Glucose 222 12/11/17 15:40: Lactic Acid 1.4 12/11/17 17:04: POC Glucose 258 12/11/17 21:29: POC Glucose 99 12/12/17 03:42: POC Glucose 54 12/12/17 04:25: POC Glucose 73 12/12/17 04:45: POC Glucose 85 12/12/17 07:53: WBC 18.5 H, RBC 3.08 L, Hgb 8.5 L, Hct 27.4 L, MCV 88.9, MCH 27.6, MCHC 31.1 L, RDW 17.2, Plt Count 191, MPV 10.6 H, Neut % (Auto) 93.9 H, Lymph % (Auto) 3.6 L, [place] % (Auto) 2.5, Eos % (Auto) 0.0 L, Baso % (Auto) 0.0 L, Neut # (Auto) 17.3 H, Lymph # (Auto) 0.7, [place] # (Auto) 0.5, Eos # (Auto) 0.0, Baso # (Auto) 0.0, Total Counted 100, Neutrophils % (Manual) 90 H, Band Neutrophils % 3.0, Lymphocytes % (Manual) 4 L, Monocytes % (Manual) 3, Platelet Estimate Normal 12/12/17 07:53: Sodium 147 H, Potassium 3.7, Chloride 116 H, Carbon Dioxide 18 L, Anion Gap 16.7 H, BUN 58 H, Creatinine 2.00 H, Estimated Creat Clear 34, Estimated GFR 24 L, Est GFR ( Amer) 29 L, Glucose 89 I & O for Last 24 hours: Intake & Output 12/09/17 12/10/17 12/11/17 12/12/17 11:59 11:59 11:59 11:59 Intake Total 150 / 150 1574 / 1574 1978 179 / 179 Output Total 1400 / 1400 200 / 200 520 / 520 550 / 550 Balance -1250 / -1250 1374 / 1374 1459 / 1459 1241 / 1241 Weight 187 lb 9 oz 198 lb 4 oz - Constitutional Comments: Does not appear to feel well - *Routine Respiratory Exam Present: decreased breath sounds, wheezes, crackles - *Routine Cardiovascular Exam Present: RRR - *Routine Abdominal Exam Present: tenderness (diffuse) - *Routine Extremities Exam Present: edema Assessment and Plan (1) Pneumonia Current visit: Yes Status: Acute Qualifiers: Pneumonia type: aspiration pneumonia Category: Medical Code(s): J18.9 - Pneumonia, unspecified organism (2) UTI (urinary tract infection) Current visit: Yes Status: Acute Category: Medical Code(s): N39.0 - Urinary tract infection, site not specified (3) Hypotension Current visit: Yes Status: Acute Category: Medical Code(s): I95.9 - Hypotension, unspecified (4) Anemia Current visit: Yes Status: Acute Category: Medical Code(s): D64.9 - Anemia, unspecified (5) CVA (cerebrovascular accident) Current visit: Yes Status: Chronic Category: Medical Code(s): I63.9 - Cerebral infarction, unspecified (6) HTN (hypertension) Current visit: Yes Status: Chronic Category: Medical Code(s): I10 - Essential (primary) hypertension (7) Diabetes mellitus Current visit: Yes Status: Chronic Category: Medical Code(s): E11.9 - Type 2 diabetes mellitus without complications (8) PEG (percutaneous endoscopic gastrostomy) status Current visit: Yes Status: Acute Category: Surgical Code(s): Z93.1 - Gastrostomy status (9) Dysphagia as late effect of cerebrovascular accident (CVA) Current visit: Yes Status: Acute Category: Medical Code(s): I69.391 - Dysphagia following cerebral infarction (10) Decubitus ulcers Current visit: Yes Status: Acute Category: Medical Code(s): L89.90 - Pressure ulcer of unspecified site, unspecified stage (11) Right hip pain Current visit: Yes Status: A
--- NOTE | 2017-12-12 08:39 | P.PN_ITS ---
<Sara Worley - Last Filed: 12/12/17 08:36> Internal Medicine - PN: Subj *Date: 12/12/17 *Time: 08:36 Interval history: Patient is not feeling well today. According to nursing staff she did not respond through the night, however this morning she does open her eyes and can answer yes or no when presented with questions. She does continue to moan. When palpated, she says her legs are tender and her abdomen is tender. Exam Vital signs and Labs for Last 24 Hours: Temp Pulse Resp BP Pulse Ox 97.6 F 66 20 149/88 94 L 12/12/17 07:41 12/12/17 07:41 12/12/17 07:41 12/12/17 07:41 12/12/17 07:41 Laboratory Results - last 24 hr 12/11/17 06:20: Total Counted 100, Neutrophils % (Manual) 91 H, Band Neutrophils % 5.0, Lymphocytes % (Manual) 2 L, Monocytes % (Manual) 2, Platelet Estimate Normal 12/11/17 11:47: POC Glucose 222 12/11/17 15:40: Lactic Acid 1.4 12/11/17 17:04: POC Glucose 258 12/11/17 21:29: POC Glucose 99 12/12/17 03:42: POC Glucose 54 12/12/17 04:25: POC Glucose 73 12/12/17 04:45: POC Glucose 85 12/12/17 07:53: WBC 18.5 H, RBC 3.08 L, Hgb 8.5 L, Hct 27.4 L, MCV 88.9, MCH 27.6, MCHC 31.1 L, RDW 17.2, Plt Count 191, MPV 10.6 H, Neut % (Auto) 93.9 H, Lymph % (Auto) 3.6 L, [place] % (Auto) 2.5, Eos % (Auto) 0.0 L, Baso % (Auto) 0.0 L , Neut # (Auto) 17.3 H, Lymph # (Auto) 0.7, [place] # (Auto) 0.5, Eos # (Auto) 0.0 , Baso # (Auto) 0.0, Total Counted 100, Neutrophils % (Manual) 90 H, Band Neutrophils % 3.0, Lymphocytes % (Manual) 4 L, Monocytes % (Manual) 3, Platelet Estimate Normal 12/12/17 07:53: Sodium 147 H, Potassium 3.7, Chloride 116 H, Carbon Dioxide 18 L , Anion Gap 16.7 H, BUN 58 H, Creatinine 2.00 H, Estimated Creat Clear 34, Estimated GFR 24 L, Est GFR ( Amer) 29 L, Glucose 89 I & O for Last 24 hours: Intake & Output 12/09/17 12/10/17 12/11/17 12/12/17 11:59 11:59 11:59 11:59 Intake Total 150 / 150 1574 / 1574 1978 / 179 Output Total 1400 / 1400 200 / 200 520 / 520 550 / 550 Balance -1250 / -1250 1374 / 1374 1459 / 1459 1241 / 1241 Weight 187 lb 9 oz 198 lb 4 oz - Constitutional Comments: Does not appear to feel well - *Routine Respiratory Exam Present: decreased breath sounds, wheezes, crackles - *Routine Cardiovascular Exam Present: RRR - *Routine Abdominal Exam Present: tenderness (diffuse) - *Routine Extremities Exam Present: edema Assessment and Plan (1) Pneumonia Current visit: Yes Status: Acute Qualifiers: Pneumonia type: aspiration pneumonia Category: Medical Code(s): J18.9 - Pneumonia, unspecified organism (2) UTI (urinary tract infection) Current visit: Yes Status: Acute Category: Medical Code(s): N39.0 - Urinary tract infection, site not specified (3) Hypotension Current visit: Yes Status: Acute Category: Medical Code(s): I95.9 - Hypotension, unspecified (4) Anemia Current visit: Yes Status: Acute Category: Medical Code(s): D64.9 - Anemia , unspecified (5) CVA (cerebrovascular accident) Current visit: Yes Status: Chronic Category: Medical Code(s): I63.9 - Cerebral infarction, unspecified (6) HTN (hypertension) Current visit: Yes Status: Chronic Category: Medical Code(s): I10 - Essential (primary) hypertension (7) Diabetes mellitus Current visit: Yes Status: Chronic Category: Medical Code(s): E11.9 - Type 2 diabetes mellitus without complications (8) PEG (percutaneous endoscopic erika
--- NOTE | 2017-12-12 08:40 | PC.NURSE ---
DR. AVENDAÑO IS IN SPEAKING TO THE FAMILY AT THIS TIME.
--- NOTE | 2017-12-12 11:00 | DIET.NUTRFU ---
Pt has continued with watery diarrhea and tube feeds are being held for bowel rest. Bottom has stage 2 breakdown. Negative diarrhea panel. Abdominal distention and wt gain from 180 lbs, 187 lbs and current 198 lbs since admission. Possible transfer. Should pt remain here and continue to be full code with bowel rest, consider tpn for nutrition source. Will monitor.
[2017-12-12 11:52] LABS: POC Glucose,Bedside 80 mg/dL
--- NOTE | 2017-12-12 12:20 | PC.NURSE ---
CHECKED FOR RESIDUAL FROM G-TUBE AND WAS NONE AT THIS TIME.
--- NOTE | 2017-12-12 13:44 | PC.NURSE ---
MANASA CALLED [facility] TO CHECK ON THE STATUS OF THE PATIENT BEING TRANSFERED LATER ON TO THEIR FACILITY AND THEY SAID THAT THEY ARE GETTING A DISCHARGE AND THAT BED WILL BE GOING TO THIS PATIENT.
--- NOTE | 2017-12-12 15:08 | SW/DCPLANNER ---
PATIENT WILL TRANSFER TO [facility] ONCE A BED BECOMES AVAILABLE...
--- NOTE | 2017-12-12 16:21 | PC.NURSE ---
CHECKED PATIENTS BLOOD GLUCOSE AND SHE WAS 74, SHE WAS THEN GIVEN 120ML OF ORANGE JUICE PER G-TUBE. FAMILY AT THE BEDSIDE, PATIENT NOW HAS A BED AT AND WILL BE TRANSFERED THERE LATER.
--- NOTE | 2017-12-12 17:43 | PC.NURSE ---
PATIENTS BLOOD GLUCOSE WAS RECHECKED AND WAS UP TO 86 AT THIS TIME.
[2017-12-12 17:51] LABS: POC Glucose,Bedside 86 mg/dL
--- NOTE | 2017-12-12 18:45 | PC.NURSE ---
REPORT HAS BEEN CALLED BY CELSO ISABEL TO ACCEPTING NURSE, TRANSFER RECORD BEING COMPLETED NOW, FAMILY HAS ALREADY LEFT [facility] AT THIS TIME.
--- NOTE | 2017-12-12 20:45 | PC.NURSE ---
Residual check at this time 1-2 mL of yellow/green gastric contents removed, placed verified with gastric contents aspiration. 5 mL of free water given prior to administration of medications via g tube, g tube flushed post medical numerical control operator with 5 mL of free water.
[2017-12-12 21:27] LABS: POC Glucose,Bedside 87 mg/dL
--- NOTE | 2017-12-12 23:02 | PC.NURSE ---
EMS HERE TO TRANSFER PT TO [facility]. REPORT GIVEN TO EMS
[2017-12-13 00:51] LABS: POC Glucose,Bedside 74 mg/dL
[2017-12-13 08:11] LABS: Occult Blood,Stool Positive (Negative)
--- NOTE | 2017-12-17 10:57 | HMH.DCSUM ---
General - General Admission date: 12/05/17 Discharge date: 12/12/17 HPI HPI: Ms Gold is a 76 year old female with a difficult medical history to include multiple CVA's with left sided residual, Type 2 DM, and HTN who is a resident of of [facility]. She was sent to [facility] ER via EMS early this AM with fever, respiratory hypoxia, vomiting and AMS. She was evaluated at this ER and felt to need admission to an ICU bed . After contacting multiple facilities in [place] no ICU beds were available. Dr. Resendez was contacted and patient accepted for admission to [facility]. Patient was unable to give information and history was obtained from previous histories and [facility]: Per [facility] ER notation- Patient was noted to be bedridden with residual left sided weakness. She had been placed on oxygen at 4 LPM in the fdc in order to maintain O2 sat > 92%. O2 sats then began decreasing and she was lethargic. Chest was congested. She vomited and was felt to have possibly aspirated. She did have a fever of 102.6 and was given Tylenol . Family had noted a cough. Nursing staff stated that she had not felt well for a couple of days. With evaluation in [facility] ER she was noted to have green sputum, wheezing and felt to be in respiratory distress. She also vomited and received Zofran. She was started on IV Vanc, Levaquin, and Zosyn. She received a neb TX and 1 unit of PRBC. She was initially hypotensive and was given an estimated 4000ml of NS IV. With elevated BNP fluid bolus was discontinued. Lab results at [facility] ER: HGB 6.2 with normal WBC's, elevated LFT, BUN 67 and creatinine 1.1; BS 222; negative flu; + UA; ABG's 7.52, PCO2 41, PO2 45, HCO3 34, TI 0.115. BNP 4740. CXR no definite acute CP disease 12/04/17. CTA of chest - no definite PE. CT of abdomen --copious dense stool throughout the bowel and expanding rectum indicating fecal impaction; small HH. 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 She was discharged to [facility] for rehab following admission in Sep. She returned a few days later due to neurological changes with imaging showing extension of the previous stroke. She was on Plavix at the time and transitioned to Eliquis. She was discharged back to [facility] Oct 16, 2017 and returned to [facility] Oct 25 due to hematocrit crisis. EGD revealed non-erosive gastritis without overt bleeding. She resumed Eliquis, PPI and ASA and discharged back to [facility] 10/27/17. Patient presented back to [facility] 11/03/17 with nausea, vomiting, and diarrhea with a temp of 100. CXR at this time revealed possible LLL infiltrate, neg flu PCR, and + UTI. CT of the head at this time was stable. Patient was noted to be minimally interactive. She was treated for accelerated HTN with a cardene gtt and then PO labetalol and hydralazine. Speech therapy did follow the patient for dysphasia. She did not eat well and GT was placed for tube feedings for FTT. On 11/22/17 she was transferred to the SNF in [facility] for further care. Objective Vital signs: Temp Pulse Resp BP Pulse Ox 97.5 F L 67 20 88/38 95 12/12/17 20:00 12/12/17 20:00 12/12/17 20:00 12/12/17 20:00 12/12/17 20:00 Narrative: - *Routine HEENT Exam Eye: Present: PERRL ENT: Present: mucous membranes moist, oropharynx clear - *Routine Neck Exam Absent: carotid bruit, lymphadenopathy, thyromegaly - *Routine Respiratory Exam Comments: bilateral crackles throughout - *Routine Cardiovascular Exam Present: RRR - *Routine Abdominal Exam Present: soft, tenderness. Absent: distended, guarding Comments: diffuse tenderness to palpation; GT in place - *Routine Extremities Exam Absent: edema Comments: scattered ecchymosis and dressed wounds on bilateral lower legs - *Routine Neurological Exam Presen
--- NOTE | 2017-12-17 11:01 | P.DS_ITS ---
General - General Admission date: 12/05/17 Discharge date: 12/12/17 HPI HPI: Ms Gold is a 76 year old female with a difficult medical history to include multiple CVA's with left sided residual, Type 2 DM, and HTN who is a resident of of [facility]. She was sent to [facility] ER via EMS early this AM with fever, respiratory hypoxia, vomiting and AMS. She was evaluated at this ER and felt to need admission to an ICU bed . After contacting multiple facilities in [place] no ICU beds were available. Dr. Resendez was contacted and patient accepted for admission to [facility]. Patient was unable to give information and history was obtained from previous histories and [facility]: Per [facility] ER notation- Patient was noted to be bedridden with residual left sided weakness. She had been placed on oxygen at 4 LPM in the fdc in order to maintain O2 sat > 92%. O2 sats then began decreasing and she was lethargic. Chest was congested. She vomited and was felt to have possibly aspirated. She did have a fever of 102.6 and was given Tylenol . Family had noted a cough. Nursing staff stated that she had not felt well for a couple of days. With evaluation in [facility] ER she was noted to have green sputum, wheezing and felt to be in respiratory distress. She also vomited and received Zofran. She was started on IV Vanc, Levaquin, and Zosyn. She received a neb TX and 1 unit of PRBC. She was initially hypotensive and was given an estimated 4000ml of NS IV. With elevated BNP fluid bolus was discontinued. Lab results at [facility] ER: HGB 6.2 with normal WBC's, elevated LFT, BUN 67 and creatinine 1.1; BS 222; negative flu; + UA; ABG's 7.52, PCO2 41, PO2 45, HCO3 34, TI 0.115. BNP 4740. CXR no definite acute CP disease 12/04/17. CTA of chest - no definite PE. CT of abdomen --copious dense stool throughout the bowel and expanding rectum indicating fecal impaction; small HH. 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 She was discharged to [facility] for rehab following admission in Sep. She returned a few days later due to neurological changes with imaging showing extension of the previous stroke. She was on Plavix at the time and transitioned to Eliquis. She was discharged back to [facility] Oct 16, 2017 and returned to [facility] Oct 25 due to hematocrit crisis. EGD revealed non-erosive gastritis without overt bleeding. She resumed Eliquis, PPI and ASA and discharged back to [facility] 10/27/17. Patient presented back to [facility] 11/03/17 with nausea, vomiting, and diarrhea with a temp of 100. CXR at this time revealed possible LLL infiltrate , neg flu PCR, and + UTI. CT of the head at this time was stable. Patient was noted to be minimally interactive. She was treated for accelerated HTN with a cardene gtt and then PO labetalol and hydralazine. Speech therapy did follow the patient for dysphasia. She did not eat well and GT was placed for tube feedings for FTT. On 11/22/17 she was transferred to the SNF in [facility] for further care. Objective Vital signs: Temp Pulse Resp BP Pulse Ox 97.5 F L 67 20 88/38 95 12/12/17 20:00 12/12/17 20:00 12/12/17 20:00 12/12/17 20:00 12/12/17 20:00 Narrative: - *Routine HEENT Exam Eye: Present: PERRL ENT: Present: mucous membranes moist, oropharynx clear - *Routine Neck Exam Absent: carotid bruit, lymphadenopathy, thyromegaly - *Routine Respiratory Exam Comments: bilateral crackles throughout - *Routine Cardiovascular Exa
== END 2017-12-12 22:37 | disposition short-term general hospital (02) | DRG 177 ==
LOC: ICU 12-06 07:56 → 2ND 12-06 16:28
PROVIDERS: Surgery; Admitting Provider Family Medicine; Visit Provider Family Medicine
DX: J69.0 Pneumonitis due to inhalation of food and vomit (principal); K55.039 Acute (reversible) ischemia of large intestine, extent unspecified; I95.9 Hypotension, unspecified; L89.90 Pressure ulcer of unspecified site, unspecified stage; D64.9 Anemia, unspecified; E11.9 Type 2 diabetes mellitus without complications; I69.391 Dysphagia following cerebral infarction; N39.0 Urinary tract infection, site not specified; Z93.1 Gastrostomy status; E87.6 Hypokalemia
CPT/HCPCS: 36415; 71045; 73502; 73560; 74176; 80048; 80053; 80202; 81001; 82272; 82962; 83605; 85007; 85014; 85018; 85025; 85610; 85730; 86738; 86850; 87040; 87507; 94640; 94760; 94761; 97163; G0328; J1956; J2405; J2543; J3370; P9016